=== PATIENT | male | born 1985 | race Caucasian/White ===

== ENCOUNTER 2017-03-16 10:31 | Inpatient (IN) | payer OTHER ==
[2017-03-16 11:30] VITALS: BMI 42.4
[2017-03-16] MEDS ORDERED: chlordiazePOXIDE HCL 25 MG CAPSULE PO PRN (13:15)
[2017-03-16] MEDS ORDERED: MAGNESIUM HYDROX 2400MG/30ML ORAL SUSPENSION 30 ML CUP PO PRN (13:15)
[2017-03-16] MEDS ORDERED: diphenhydrAMINE HCL 50 MG CAPSULE PO PRN (13:15)
[2017-03-16] MEDS ORDERED: MAG HYDROX/AL HYDROX/SIMETH 30 ML UNIT-DOSE CUP PO PRN (13:15)
[2017-03-16] MEDS ORDERED: MENTHOL/PHENOL 1 EACH UD MM PRN (13:15)
[2017-03-16] MEDS ORDERED: P-EPHED 60MG/TRIPROLIDI 2.5MG TABLET PO PRN (13:15)
[2017-03-16] MEDS ORDERED: NICOTINE POLACRILEX 4 MG GUM BUC PRN (13:15)
[2017-03-16] MEDS ORDERED: guaiFENesin/D-METHORPHAN HB 10 ML UNIT-DOSE CUPS PO PRN (13:15)
[2017-03-16] MEDS ORDERED: MAGNESIUM CITRATE 300 ML BOTTLE PO PRN (13:15)
[2017-03-16] MEDS ORDERED: LOPERAMIDE HCL 2 MG CAPSULE PO PRN (13:15)
[2017-03-16] MEDS ORDERED: hydrOXYzine PAMOATE 50 MG CAPSULE (FP) PO PRN (13:15)
--- NOTE | 2017-03-16 13:15 | HP ---
CIWA Score - CIWA Score Nausea/Vomitin Muscle Tremors: 4-Moderate,w/Arms Extend Anxiety: 4-Mod. Anxious/Guarded Agitation: 4-Moderately Restless Paroxysmal Sweats: 3 Orientation: 0-Oriented Tacttile Disturbances: 1-Very Mild Itch/Numbness Auditory Disturbances: 0-None Visual Disturbances: 4-Moderate Hallucinations Headache: 1-Very Mild CIWA-Ar Total Score: 24 Admission ROS BHS - HPI Chief Complaint: requesting inpatient detoxification from alcohol use Allergies/Adverse Reactions: Allergies Allergy/AdvReac Type Severity Reaction Status Date / Time No Known Allergies Allergy Verified 03/16/17 13:12 History of Present Illness: 31 yo m w h/o alcohol and marijuana dependence, has been in detox before, last detox completed at [facility] suicide attempt 2002, ROS +ve anxiety, depression and insomnia, reports alcohol withdrawal sx and seizure in past this summer after smoking K2. Not on any medications at present. Wt steady. Exam Limitations: No Limitations - Ebola screening Have you traveled outside of the country in the last 21 days: No Have you had contact with anyone from an Ebola affected area: No Have you been sick,other than usual withdrawal symptoms: No Do you have a fever: No - Review of Systems Constitutional: Diaphoresis, Weight Stable EENT: reports: No Symptoms Reported Respiratory: reports: No Symptoms reported Cardiac: reports: Syncope (had blackouts , last one 1 week ago) GI: reports: Nausea, Poor Fluid Intake, Vomiting (yestereday while drinking) : reports: No Symptoms Reported Musculoskeletal: reports: No Symptoms Reported Integumentary: reports: [place] Neuro: reports: Headache, Seizure, Tremors Endocrine: reports: No Symptoms Reported Hematology: reports: No Symptoms Reported Psychiatric: reports: Judgement Intact, Mood/Affect Appropiate, Orientated x3, Anxious Other Systems: Reviewed and Negative Patient History - Patient Medical History Hx Anemia: No Hx Asthma: No Hx Chronic Obstructive Pulmonary Disease (COPD): No Hx Cancer: No Hx Cardiac Disorders: No Hx Congestive Heart Failure: No Hx Hypertension: No Hx Hypercholesterolemia: No Hx Pacemaker: No HX Cerebrovascular Accident: No Hx Seizures: No Hx Dementia: No Hx Diabetes: No Hx Gastrointestinal Disorders: No Hx Liver Disease: No Hx Genitourinary Disorders: No Hx Sexually Transmitted Disorders: No Hx Renal Disease (ESRD): No Hx Thyroid Disease: No Hx Human Immunodeficiency Virus (HIV): No Hx Hepatitis C: No Hx Depression: Yes (no med) Hx Suicide Attempt: Yes (2002) Hx Bipolar Disorder: Yes (no med) Hx Schizophrenia: No - Patient Surgical History Past Surgical History: No Hx Neurologic Surgery: No Hx Cataract Extraction: No Hx Cardiac Surgery: No Hx Lung Surgery: No Hx Breast Surgery: No Hx Breast Biopsy: No Hx Abdominal Surgery: No Hx Appendectomy: No Hx Cholecystectomy: No Hx Genitourinary Surgery: No Hx Section: No Hx Orthopedic Surgery: No Hx Hysterectomy: No Anesthesia Reaction: No - PPD History Previous Implant?: Yes Documented Results: Negative w/o proof Implanted On Prior [facility] Admission?: Yes Date: 04/14/13 PPD to be Administered?: Yes - Reproductive History Patient is a Female of Child Bearing Age (11 -55 yrs old): No Patient : No - Smoking Cessation Smoking history: Current every day smoker Have you smoked in the past 12 months: Yes Aproximately how many cigarettes per day: 10 Hx Chewing Tobacco Use: No Initiated information on smoking cessation: Yes 'Breaking Loose' booklet given: 03/16/17 - Substance & Tx. History Hx Alcohol Use: Yes (2 pints vodka) Hx Substance Use: Yes Substance Use Type: Alcohol, Marijuana Hx Substance Use Treatment: Yes ([facility] 01/1027) - Substances Abused Alcohol Route: Oral Frequency: Daily Amount used: vodka(2 pints) Age of first use: 13 Date of Last Use: 03/16/17 Marijuana/Hashish Route: Smoking Frequency: Daily Amount used: $10 Age of first use: 13 Date of Last Use: 03/15/17 Family Disease History - Family Disease History Family Disease History: Diabetes: Grandparent, Other: Brother (schizophrenia) Admission Physical Exam BHS - Vital Signs Vital Signs: Vital Signs - 24 hr 03/16/17 11:28 Temperature 96.3 F L Pulse Rate 88 Respiratory 20 Rate Blood Pressure 140/89 - Physical General Appearance: Yes: Nourished, Appropriately Dressed, Mild Distress, Alcohol on Breath, Obese, Sweating, Anxious HEENTM: Yes: Within Normal Limits, EOMI, Hearing grossly Normal, Normal ENT Inspection, Normocephalic, Normal Voice, TOD, Pharynx Normal Respiratory: Yes: Within Normal Limits, Chest Non-Tender, Lungs Clear, Normal Breath Sounds, No Respiratory Distress, No Accessory Muscle Use Neck: Yes: Within Normal Limits, No masses,lesions,Nodules, Supple, Trachea in good position Breast: Yes: Breast Exam Deferred Cardiology: Yes: Within Normal Limits, Regular Rhythm, Regular Rate, S1, S2 Abdominal: Yes: Within Normal Limits, Normal Bowel Sounds, Non Tender, Soft, Protuberent Genitourinary: Yes: Within Normal Limits Back: Yes: Within Normal Limits, Normal Inspection Musculoskeletal: Yes: Within Normal Limits, full range of Motion, Gait Steady, Pelvis Stable Extremities: Yes: Normal Capillary Refill, Normal Inspection, Normal Range of Motion, Non-Tender, Tremors Neurological: 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: 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 NML intact, Fully Oriented, Alert, Motor Strength 5/5, Normal Response, Depressed Affect Integumentary: Yes: Normal Color, Warm, [place] Lymphatic: Yes: Within Normal Limits - Addiitonal Findings: withdrawwal sx present - Diagnostic (1) Bipolar disorder Current Visit: Yes Status: Chronic (2) Cocaine dependence Current Visit: No Status: Resolved (3) Syncope Current Visit: Yes Status: Active (4) Alcohol dependence with uncomplicated withdrawal Current Visit: Yes Status: Acute (5) Cannabis dependence, uncomplicated Current Visit: Yes Status: Acute (6) Nicotine dependence unspecified, with withdrawal Current Visit: Yes Status: Acute (7) Obesity Current Visit: Yes Status: Acute (8) Seizure Current Visit: Yes Status: Acute Cleared for Admission [facility] - Detox or Rehab [facility] Level of Care: Medically Managed Detox Regimen/Protocol: Librium Claeared for Rehab Admission: (n/a) [facility] Breath Alcohol Content Breath Alcohol Content: 0.094 Urine Drug Screen - Control Is Test Valid: Yes - Results Drug Screen Negative: No Urine Drug Screen Results: THC-Marijuana
[2017-03-16] MEDS ORDERED: chlordiazePOXIDE HCL 25 MG CAPSULE PO ONE (14:29)
[2017-03-16] MEDS: NICOTINE 21 MG/24 HOURS TOPICAL PATCH TD SCH (15:07)
[2017-03-16] MEDS: chlordiazePOXIDE HCL 25 MG CAPSULE PO SCH ×2 (17:25→22:46)
[2017-03-16 22:33] LABS: URINE APPEARANCE CLEAR; URINE BILIRUBIN NEGATIVE (NEGATIVE); URINE BLOOD NEGATIVE (NEGATIVE); URINE COLOR LTYELLOW; URINE GLUCOSE (UA) NEGATIVE (NEGATIVE); URINE KETONE TRACE (NEGATIVE); URINE LEUK ESTERASE NEGATIVE (NEGATIVE); URINE NITRITE NEGATIVE (NEGATIVE); URINE PROTEIN NEGATIVE (NEGATIVE); URINE UROBILINOGEN NEGATIVE E.U./dl (0.2-1.0)
[2017-03-16] MEDS: ACETAMINOPHEN 325 MG TABLET (FP) PO PRN (22:46)
[2017-03-16] MEDS: THIAMINE HCL 100 MG TABLET (FP) PO SCH (22:51)
[2017-03-17] MEDS: chlordiazePOXIDE HCL 25 MG CAPSULE PO SCH ×4 (06:06→22:46)
--- NOTE | 2017-03-17 10:10 | EKG ---
Test Reason : Blood Pressure : / mmHG Vent. Rate : 066 BPM Atrial Rate : 066 BPM P-R Int : 172 ms QRS Dur : 094 ms QT Int : 386 ms P-R-T Axes : 063 071 038 degrees QTc Int : 404 ms NORMAL SINUS RHYTHM NORMAL ECG NO PREVIOUS ECGS AVAILABLE Confirmed by GER DEXTER MD ([id number]) on 03/17/2017 10:10:05 AM Referred By: Confirmed By:GER DEXTER MD
[2017-03-17 10:20] LABS: MCHC 33.7 g/dl (32.0-35.9); MEAN CELL VOLUME 86.2 fl (80-96); MEAN PLT VOLUME 9.7 fl (7.5-11.1); PLATELET COUNT 173 K/MM3 (134-434); RDW 14.2 % (11.9-15.9); WHITE BLOOD COUNT 5.3 K/mm3 (4.0-10.0)
--- NOTE | 2017-03-17 10:25 | CONSULT ---
[facility] Psychiatric Consult - Data Date of interview: 03/17/17 Admission source: [facility] Identifying data: This is 31 years old single male admitted to [address] [place] [address] ,intoxicated with Alcohol,Marijuana. Substance Abuse History: Reports drinking since 13 years old,2 pints of vodka daily,Cannabis since school age. Medical History: H/O Syncope,Seizures,Obesity. Psychiatric History: Patient denies previous psychiatric history and is not willing to take psychiatric medications. Physical/Sexual Abuse/Trauma History: denies Mental Status Exam - Mental Status Exam Alert and Oriented to: Time, Place, Person Cognitive Function: Grossly Intact Patient Appearance: Well Groomed Mood: Euthymic Affect: Mood Congruent Patient Behavior: Cooperative Speech Pattern: Clear Voice Loudness: Normal Thought Process: Goal Oriented Thought Disorder: Not Present Hallucinations: Denies Suicidal Ideation: Denies Homicidal Ideation: Denies Insight/Judgement: Fair Sleep: Fair Appetite: Fair Muscle strength/Tone: Normal Gait/Station: Normal Psychiatric Findings - Problem List ([place] 1, 2,3) (1) Alcohol dependence with uncomplicated withdrawal Status: Chronic (2) Cannabis dependence, uncomplicated Status: Chronic (3) Nicotine dependence unspecified, with withdrawal Status: Chronic (4) Obesity Status: Chronic (5) Seizure Status: Inactive - Initial Treatment Plan Initial Treatment Plan: Will monitor progress.
[2017-03-17] MEDS: NICOTINE 21 MG/24 HOURS TOPICAL PATCH TD SCH (10:34)
[2017-03-17] MEDS: PRENATAL VITAMINS W/ FOLIC ACID TABLET (FP) PO SCH (10:34)
[2017-03-17] MEDS: ACETAMINOPHEN 325 MG TABLET (FP) PO PRN ×2 (10:35→17:46)
[2017-03-17 11:00] LABS: ALBUMIN 3.9 g/dl (3.4-5.0); ALK PHOS 67 U/L (45-117); ANION GAP 10 (8-16); BILIRUBIN,TOTAL 0.2 mg/dL (0.2-1.0); CALCIUM 8.4 mg/dL (8.5-10.1); CO2 24 mmol/L (21-32); COCKROFT - GAULT 177.28; GLUCOSE,RANDOM 110 mg/dL (74-106); SGOT/AST 47 U/L (15-37); SGPT/ALT 44 U/L (12-78); TOT PROT 7.2 g/dl (6.4-8.2)
--- NOTE | 2017-03-17 14:26 | PN ---
[facility] CIWA - CIWA Score Nausea/Vomitin Muscle Tremors: 3 Anxiety: 3 Agitation: 2 Paroxysmal Sweats: 3 Orientation: 0-Oriented Tacttile Disturbances: 1-Very Mild Itch/Numbness Auditory Disturbances: 0-None Visual Disturbances: 1-Very Mild Sensitivity Headache: 2-Mild CIWA-Ar Total Score: 17 S Progress Note (SOAP) Subjective: tremors, sweats, sleep interruption Objective: 03/17/17 14:25 Vital Signs 03/17/17 03/17/17 06:52 09:46 Temperature 96 F L 97.0 F L Pulse Rate 64 70 Respiratory 18 20 Rate Blood Pressure 129/87 126/92 Laboratory Last Values WBC 5.3 K/mm3 (4.0-10.0) 03/17/17 06:16 RBC 4.62 M/mm3 (4.00-5.60) 03/17/17 06:16 Hgb 13.4 GM/dL (11.7-16.9) 03/17/17 06:16 Hct 39.8 % (35.4-49) 03/17/17 06:16 MCV 86.2 fl (80-96) 03/17/17 06:16 MCHC 33.7 g/dl (32.0-35.9) 03/17/17 06:16 RDW 14.2 % (11.9-15.9) 03/17/17 06:16 Plt Count 173 K/MM3 (134-434) 03/17/17 06:16 MPV 9.7 fl (7.5-11.1) 03/17/17 06:16 Sodium 143 mmol/L (136-145) 03/17/17 06:16 Potassium 4.0 mmol/L (3.5-5.1) 03/17/17 06:16 Chloride 109 mmol/L (98-107) H 03/17/17 06:16 Carbon Dioxide 24 mmol/L (21-32) 03/17/17 06:16 Anion Gap 10 (8-16) 03/17/17 06:16 BUN 18 mg/dL (7-18) 03/17/17 06:16 Creatinine 1.0 mg/dL (0.7-1.3) 03/17/17 06:16 Creat Clearance w eGFR > 60 (>60) 03/17/17 06:16 Random Glucose 110 mg/dL (74-106) H 03/17/17 06:16 Calcium 8.4 mg/dL (8.5-10.1) L 03/17/17 06:16 Total Bilirubin 0.2 mg/dL (0.2-1.0) D 03/17/17 06:16 AST 47 U/L (15-37) H D 03/17/17 06:16 ALT 44 U/L (12-78) D 03/17/17 06:16 Alkaline Phosphatase 67 U/L (45-117) D 03/17/17 06:16 Total Protein 7.2 g/dl (6.4-8.2) 03/17/17 06:16 Albumin 3.9 g/dl (3.4-5.0) 03/17/17 06:16 Urine Color Ltyellow 03/16/17 13:00 Urine Appearance Clear 03/16/17 13:00 Urine pH 5.0 (5.0-8.0) D 03/16/17 13:00 Ur Specific [place] 1.020 (1.001-1.035) 03/16/17 13:00 Urine Protein Negative (NEGATIVE) 03/16/17 13:00 Urine Glucose (UA) Negative (NEGATIVE) 03/16/17 13:00 Urine Ketones Trace (NEGATIVE) H 03/16/17 13:00 Urine Blood Negative (NEGATIVE) 03/16/17 13:00 Urine Nitrite Negative (NEGATIVE) 03/16/17 13:00 Urine Bilirubin Negative (NEGATIVE) 03/16/17 13:00 Urine Urobilinogen Negative E.U./dl (0.2-1.0) 03/16/17 13:00 Ur Leukocyte Esterase Negative (NEGATIVE) 03/16/17 13:00 RPR Titer Nonreactive (NONREACTIVE) 03/17/17 06:16 labs noted Assessment: 03/17/17 14:25 withdrawal sx Plan: continue detox
[2017-03-17] MEDS: THIAMINE HCL 100 MG TABLET (FP) PO SCH (22:46)
[2017-03-17] MEDS: IBUPROFEN 400 MG TABLET (FP) PO PRN (22:47)
[2017-03-18] MEDS: chlordiazePOXIDE HCL 25 MG CAPSULE PO SCH ×2 (06:19→11:01)
[2017-03-18] MEDS: IBUPROFEN 400 MG TABLET (FP) PO PRN ×2 (06:21→17:29)
[2017-03-18] MEDS: PRENATAL VITAMINS W/ FOLIC ACID TABLET (FP) PO SCH (11:01)
[2017-03-18] MEDS: NICOTINE 21 MG/24 HOURS TOPICAL PATCH TD SCH (11:01)
[2017-03-18] MEDS: ACETAMINOPHEN 325 MG TABLET (FP) PO PRN (11:03)
[2017-03-18 13:44] LABS: URINE APPEARANCE CLEAR; URINE BILIRUBIN NEGATIVE (NEGATIVE); URINE BLOOD NEGATIVE (NEGATIVE); URINE COLOR STRAW; URINE GLUCOSE (UA) NEGATIVE (NEGATIVE); URINE KETONE NEGATIVE (NEGATIVE); URINE LEUK ESTERASE NEGATIVE (NEGATIVE); URINE NITRITE NEGATIVE (NEGATIVE); URINE PROTEIN NEGATIVE (NEGATIVE); URINE UROBILINOGEN NEGATIVE E.U./dl (0.2-1.0)
--- NOTE | 2017-03-18 16:45 | PN ---
S CIWA - CIWA Score Nausea/Vomitin Muscle Tremors: 4-Moderate,w/Arms Extend Anxiety: 4-Mod. Anxious/Guarded Agitation: 4-Moderately Restless Paroxysmal Sweats: No Perspiration Orientation: 0-Oriented Tacttile Disturbances: 1-Very Mild Itch/Numbness Auditory Disturbances: 0-None Visual Disturbances: 0-None Headache: 1-Very Mild CIWA-Ar Total Score: 17 BHS Progress Note (SOAP) Subjective: Anxious, interrupted sleep, sweating, restless Objective: 03/18/17 16:44 Last Vital Signs Temp Pulse Resp BP Pulse Ox 97.4 F L 67 18 123/79 03/18/17 14:05 03/18/17 14:05 03/18/17 14:05 03/18/17 14:05 Laboratory Tests 03/16/17 03/17/17 03/17/17 13:00 06:16 06:16 WBC 5.3 RBC 4.62 Hgb 13.4 Hct 39.8 MCV 86.2 MCHC 33.7 RDW 14.2 Plt Count 173 MPV 9.7 Sodium 143 Potassium 4.0 Chloride 109 H Carbon Dioxide 24 Anion Gap 10 BUN 18 Creatinine 1.0 Creat Clearance w eGFR > 60 Random Glucose 110 H Calcium 8.4 L Total Bilirubin 0.2 D AST 47 H D ALT 44 D Alkaline Phosphatase 67 D Total Protein 7.2 Albumin 3.9 Urine Color Ltyellow Urine Appearance Clear Urine pH 5.0 D Ur Specific [place] 1.020 Urine Protein Negative Urine Glucose (UA) Negative Urine Ketones Trace H Urine Blood Negative Urine Nitrite Negative Urine Bilirubin Negative Urine Urobilinogen Negative Ur Leukocyte Esterase Negative RPR Titer 03/17/17 03/18/17 06:16 11:00 WBC RBC Hgb Hct MCV MCHC RDW Plt Count MPV Sodium Potassium Chloride Carbon Dioxide Anion Gap BUN Creatinine Creat Clearance w eGFR Random Glucose Calcium Total Bilirubin AST ALT Alkaline Phosphatase Total Protein Albumin Urine Color Straw Urine Appearance Clear Urine pH 7.0 D Ur Specific [place] 1.011 Urine Protein Negative Urine Glucose (UA) Negative Urine Ketones Negative Urine Blood Negative Urine Nitrite Negative Urine Bilirubin Negative Urine Urobilinogen Negative Ur Leukocyte Esterase Negative RPR Titer Nonreactive Labs noted Assessment: 03/18/17 16:44 Withdrawal symptoms Plan: Continue detox
[2017-03-18] MEDS ORDERED: chlordiazePOXIDE 5 MG CAPSULE PO SCH (17:00)
[2017-03-18 22:36] VITALS: BP 138/88; PULSE 62; TEMP 99
--- NOTE | 2017-03-18 23:09 | PN ---
[facility] Progress Note Note: 'S NOTE: INFORMED AT 11:10PM THAT THE PT. WANTS TO SIGN OUT AMA FOR FAMILY EMERGENCY SO, THE PT. SIGNED OUT AMA AND ABOUT TO LEAVE THE FACILITY SOON RECOMMENDED TO F/U WITH PMD AND OUT PT. PROGRAMS. PROVIDER: ANALILIA GOLDBERG MD
[2017-03-19] MEDS ORDERED: chlordiazePOXIDE HCL 10 MG CAPSULE PO SCH (17:00)
--- NOTE | 2017-04-29 19:16 | DS ---
[facility] Detox Discharge Summary Admission Date: 03/16/17 Discharge Date: 03/18/17 - History Present History: Alcohol Dependence, Cannabis Dependence, Cocaine Dependence Pertinent Past History: Obesity - Physical Exam Results Vital Signs: Vital Signs Temperature 99.0 F 03/18/17 22:35 Pulse Rate 62 03/18/17 22:35 Respiratory Rate 19 03/18/17 22:35 Blood Pressure 138/88 03/18/17 22:35 O2 Sat by Pulse Oximetry (%) Pertinent Admission Physical Exam Findings: Withdrawal sx. Laboratory Last Values WBC 5.3 K/mm3 (4.0-10.0) 03/17/17 06:16 RBC 4.62 M/mm3 (4.00-5.60) 03/17/17 06:16 Hgb 13.4 GM/dL (11.7-16.9) 03/17/17 06:16 Hct 39.8 % (35.4-49) 03/17/17 06:16 MCV 86.2 fl (80-96) 03/17/17 06:16 MCHC 33.7 g/dl (32.0-35.9) 03/17/17 06:16 RDW 14.2 % (11.9-15.9) 03/17/17 06:16 Plt Count 173 K/MM3 (134-434) 03/17/17 06:16 MPV 9.7 fl (7.5-11.1) 03/17/17 06:16 Sodium 143 mmol/L (136-145) 03/17/17 06:16 Potassium 4.0 mmol/L (3.5-5.1) 03/17/17 06:16 Chloride 109 mmol/L (98-107) H 03/17/17 06:16 Carbon Dioxide 24 mmol/L (21-32) 03/17/17 06:16 Anion Gap 10 (8-16) 03/17/17 06:16 BUN 18 mg/dL (7-18) 03/17/17 06:16 Creatinine 1.0 mg/dL (0.7-1.3) 03/17/17 06:16 Creat Clearance w eGFR > 60 (>60) 03/17/17 06:16 Random Glucose 110 mg/dL (74-106) H 03/17/17 06:16 Calcium 8.4 mg/dL (8.5-10.1) L 03/17/17 06:16 Total Bilirubin 0.2 mg/dL (0.2-1.0) D 03/17/17 06:16 AST 47 U/L (15-37) H D 03/17/17 06:16 ALT 44 U/L (12-78) D 03/17/17 06:16 Alkaline Phosphatase 67 U/L (45-117) D 03/17/17 06:16 Total Protein 7.2 g/dl (6.4-8.2) 03/17/17 06:16 Albumin 3.9 g/dl (3.4-5.0) 03/17/17 06:16 Urine Color Straw 03/18/17 11:00 Urine Appearance Clear 03/18/17 11:00 Urine pH 7.0 (5.0-8.0) D 03/18/17 11:00 Ur Specific [place] 1.011 (1.001-1.035) 03/18/17 11:00 Urine Protein Negative (NEGATIVE) 03/18/17 11:00 Urine Glucose (UA) Negative (NEGATIVE) 03/18/17 11:00 Urine Ketones Negative (NEGATIVE) 03/18/17 11:00 Urine Blood Negative (NEGATIVE) 03/18/17 11:00 Urine Nitrite Negative (NEGATIVE) 03/18/17 11:00 Urine Bilirubin Negative (NEGATIVE) 03/18/17 11:00 Urine Urobilinogen Negative E.U./dl (0.2-1.0) 03/18/17 11:00 Ur Leukocyte Esterase Negative (NEGATIVE) 03/18/17 11:00 RPR Titer Nonreactive (NONREACTIVE) 03/17/17 06:16 labs noted - Treatment Patient has Accepted a Rehab Referral to: [facility] meetings - Medication Discharge Medications: Ambulatory Orders NK [No Known Home Medication] 03/16/17 - Diagnosis (1) Alcohol dependence with uncomplicated withdrawal Status: Acute (2) Cannabis dependence, uncomplicated Status: Acute (3) Nicotine dependence Status: Acute Qualifiers: Nicotine product type: cigarettes Substance use status: uncomplicated Qualified Code(s): F17.210 - Nicotine dependence, cigarettes, uncomplicated (4) Obesity Status: Chronic Qualifiers: Obesity type: unspecified obesity type - AMA Did Patient Leave Against Medical Advice: Yes
== END 2017-03-18 23:17 | disposition left against medical advice (07) | DRG 770 ==
LOC: YASAS 10:31 → Y3N 14:23
PROVIDERS: ADMIT Internal Medicine; ATTEND Internal Medicine
PROC: HZ2ZZZZ Detoxification Services for Substance Abuse Treatment (ICD-10-PCS; principal; 2017-03-16)
DX: F10.230 Alcohol dependence with withdrawal, uncomplicated (principal); F12.20 Cannabis dependence, uncomplicated; F17.210 Nicotine dependence, cigarettes, uncomplicated; F31.9 Bipolar disorder, unspecified; E66.9 Obesity, unspecified; Z68.41 Body mass index [BMI] 40.0-44.9, adult; Z86.69 Personal history of other diseases of the nervous system and sense organs; Z91.5 Personal history of self-harm
CPT/HCPCS: 36415; 80053; 81003; 85027; 86593; 93005; 93010

== ENCOUNTER 2017-04-25 09:57 | Inpatient (IN) | payer OTHER ==
[2017-04-25 11:25] VITALS: BMI 40.3
--- NOTE | 2017-04-25 13:58 | HP ---
Admission [facility] Chief Complaint: REHAB TX FOR DRUGS AND ALCOHOL DEPENDENCE Allergies/Adverse Reactions: Allergies Allergy/AdvReac Type Severity Reaction Status Date / Time No Known Allergies Allergy Verified 04/25/17 13:08 History of Present Illness: 31 Y/O MALE WITH A HX OF ALCOHOL,K2 AND MARIJUANA DEPENDENCE SEEKING REHAB TX. Exam Limitations: No Limitations - Ebola screening Have you traveled outside of the country in the last 21 days: No Have you had contact with anyone from an Ebola affected area: No Have you been sick,other than usual withdrawal symptoms: No - Review of Systems Constitutional: No Symptoms Reported EENT: reports: Dental Problems (CAVITIES) Respiratory: reports: No Symptoms reported Cardiac: reports: Lightheadedness GI: reports: Nausea : reports: No Symptoms Reported Musculoskeletal: reports: Joint Pain, Muscle Pain Integumentary: reports: Rash (BOTH ANKLES WITH NITCHY RASH X 6 MONTHS) Neuro: reports: Headache, Seizure (X 2 RELATED TO DRUG USE), Dizziness Endocrine: reports: No Symptoms Reported Hematology: reports: No Symptoms Reported Psychiatric: reports: Orientated x3, Anxious Other Systems: Reviewed and Negative Patient History - Patient Medical History Hx Anemia: No Hx Asthma: No Hx Chronic Obstructive Pulmonary Disease (COPD): No Hx Cancer: No Hx Cardiac Disorders: No Hx Congestive Heart Failure: No Hx Hypertension: No Hx Hypercholesterolemia: No Hx Pacemaker: No HX Cerebrovascular Accident: No Hx Seizures: No Hx Dementia: No Hx Diabetes: No Hx Gastrointestinal Disorders: No Hx Liver Disease: No Hx Genitourinary Disorders: No Hx Sexually Transmitted Disorders: No Hx Renal Disease (ESRD): No Hx Thyroid Disease: No Hx Human Immunodeficiency Virus (HIV): No Hx Hepatitis C: No Hx Depression: Yes (no med) Hx Suicide Attempt: Yes (DRINKING CLOROX 2002; DENIES ) Hx Bipolar Disorder: Yes (no med) Hx Schizophrenia: No - Patient Surgical History Past Surgical History: Yes Hx Neurologic Surgery: No Hx Cataract Extraction: No Hx Cardiac Surgery: No Hx Lung Surgery: No Hx Breast Surgery: No Hx Breast Biopsy: No Hx Abdominal Surgery: No Hx Appendectomy: Yes (06/2016) Hx Cholecystectomy: No Hx Genitourinary Surgery: No Hx Orthopedic Surgery: No Anesthesia Reaction: No - PPD History Previous Implant?: Yes Implanted On Prior [facility] Admission?: Yes Date: 03/18/17 PPD to be Administered?: No - Reproductive History Patient is a Female of Child Bearing Age (11 -55 yrs old): No (MALE) - Smoking Cessation Smoking history: Current every day smoker Have you smoked in the past 12 months: Yes Aproximately how many cigarettes per day: 10 Hx Chewing Tobacco Use: No Initiated information on smoking cessation: Yes 'Breaking Loose' booklet given: 04/25/17 - Substance & Tx. History Hx Alcohol Use: Yes (VODKA) Hx Substance Use: Yes (MARIJUANA/K2) Substance Use Type: Alcohol, Marijuana Hx Substance Use Treatment: Yes ([facility]) - Substances Abused Alcohol Route: Oral Frequency: Daily Amount used: 1 1/2 PTS Age of first use: 13 Date of Last Use: 04/25/17 Marijuana/Hashish Route: Smoking Frequency: 3-6 times per week Amount used: 1 SIS Age of first use: 13 Date of Last Use: 04/24/17 K2 Route: Smoking Frequency: 3-6 times per week Age of first use: 28 Date of Last Use: 04/24/17 Family Disease History - Family Disease History Family Disease History: Diabetes: Grandparent, Other: Brother (schizophrenia) Admission Physical Exam S - Vital Signs Vital Signs: Vital Signs - 24 hr 04/25/17 11:24 Temperature 97 F L Pulse Rate 78 Respiratory 18 Rate Blood Pressure 122/84 - Physical General Appearance: Yes: No Apparent Distress, Obese, Anxious HEENTM: Yes: EOMI, Normocephalic, Pharynx Normal Respiratory: Yes: Chest Non-Tender, Lungs Clear, Normal Breath Sounds, No Respiratory Distress Neck: Yes: Supple, Trachea in good position Breast: Yes: Breast Exam Deferred Cardiology: Yes: Regular Rhythm, Regular Rate, S1, S2 Abdominal: Yes: Normal Bowel Sounds, Non Tender Genitourinary: Yes: Other (N/C) Back: Yes: Within Normal Limits Musculoskeletal: Yes: full range of Motion, Gait Steady Extremities: Yes: Normal Range of Motion, Non-Tender 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 intact, Fully Oriented, Alert Integumentary: Yes: Dry, Warm Lymphatic: Yes: Within Normal Limits - Diagnostic (1) Alcohol dependence with uncomplicated withdrawal Current Visit: Yes Status: Chronic (2) Cannabis dependence, uncomplicated Current Visit: Yes Status: Chronic (3) Nicotine dependence unspecified, with withdrawal Current Visit: Yes Status: Acute Qualifiers: Nicotine product type: cigarettes Qualified Code(s): F17.213 - Nicotine dependence, cigarettes, with withdrawal (4) Obesity Current Visit: Yes Status: Chronic Qualifiers: Obesity type: unspecified obesity type Cleared for Admission [facility] - Detox or Rehab Claeared for Rehab Admission: Yes [facility] Breath Alcohol Content Breath Alcohol Content: 0.011 Urine Drug Screen - Results Drug Screen Negative: No Urine Drug Screen Results: THC-Marijuana, BZO-Benzodiazepines
[2017-04-25] MEDS ORDERED: NICOTINE POLACRILEX 2 MG GUM BUC PRN (14:11)
[2017-04-25] MEDS ORDERED: ACETAMINOPHEN 325 MG TABLET (FP) PO PRN (14:11)
[2017-04-25] MEDS ORDERED: P-EPHED 60MG/TRIPROLIDI 2.5MG TABLET PO PRN (14:11)
[2017-04-25] MEDS ORDERED: diphenhydrAMINE HCL 50 MG CAPSULE PO PRN (14:11)
[2017-04-25] MEDS ORDERED: MAGNESIUM HYDROX 2400MG/30ML ORAL SUSPENSION 30 ML CUP PO PRN (14:11)
[2017-04-25] MEDS ORDERED: MENTHOL/PHENOL 1 EACH UD MM PRN (14:11)
[2017-04-25] MEDS ORDERED: guaiFENesin/D-METHORPHAN HB 10 ML UNIT-DOSE CUPS PO PRN (14:11)
[2017-04-25] MEDS ORDERED: IBUPROFEN 400 MG TABLET (FP) PO PRN (14:11)
[2017-04-25] MEDS ORDERED: MAGNESIUM CITRATE 300 ML BOTTLE PO PRN (14:11)
[2017-04-25] MEDS ORDERED: hydrOXYzine PAMOATE 25 MG CAPSULE (FP) PO PRN (14:11)
[2017-04-25] MEDS ORDERED: MAG HYDROX/AL HYDROX/SIMETH 30 ML UNIT-DOSE CUP PO PRN (14:11)
[2017-04-25] MEDS ORDERED: LOPERAMIDE HCL 2 MG CAPSULE PO PRN (14:11)
[2017-04-25] MEDS: NICOTINE 14 MG/24 HOURS TOPICAL PATCH TD SCH (19:41)
[2017-04-25 19:48] LABS: URINE APPEARANCE TURBID; URINE BILIRUBIN NEGATIVE (NEGATIVE); URINE BLOOD NEGATIVE (NEGATIVE); URINE COLOR YELLOW; URINE GLUCOSE (UA) NEGATIVE (NEGATIVE); URINE KETONE TRACE (NEGATIVE); URINE LEUK ESTERASE NEGATIVE (NEGATIVE); URINE NITRITE NEGATIVE (NEGATIVE); URINE PROTEIN NEGATIVE (NEGATIVE); URINE UROBILINOGEN NEGATIVE E.U./dl (0.2-1.0)
[2017-04-25] MEDS: THIAMINE HCL 100 MG TABLET (FP) PO SCH (21:36)
[2017-04-26] MEDS: PRENATAL VITAMINS W/ FOLIC ACID TABLET (FP) PO SCH (09:30)
[2017-04-26] MEDS: NICOTINE 14 MG/24 HOURS TOPICAL PATCH TD SCH (09:30)
[2017-04-26 09:55] LABS: MCH 28.8 pg (25.7-33.7); MEAN CELL VOLUME 87.4 fl (80-96); MEAN PLT VOLUME 10.3 fl (7.5-11.1); PLATELET COUNT 182 K/MM3 (134-434); RDW 14.8 % (11.9-15.9)
[2017-04-26 10:24] LABS: ALBUMIN 4.1 g/dl (3.4-5.0); ALK PHOS 68 U/L (45-117); ANION GAP 14 (8-16); BILIRUBIN,TOTAL 0.3 mg/dL (0.2-1.0); CALCIUM 8.9 mg/dL (8.5-10.1); CO2 23 mmol/L (21-32); COCKROFT - GAULT 187.24; CREATININE 0.9 mg/dL (0.7-1.3); GLUCOSE,RANDOM 85 mg/dL (74-106); SGOT/AST 26 U/L (15-37); SGPT/ALT 32 U/L (12-78); TOT PROT 7.6 g/dl (6.4-8.2)
[2017-04-26 12:14] LABS: HIV 1 & 2 AB NEGATIVE; HIV 1 AGp24 NEGATIVE
--- NOTE | 2017-04-26 16:36 | EKG ---
Test Reason : Blood Pressure : / mmHG Vent. Rate : 058 BPM Atrial Rate : 058 BPM P-R Int : 174 ms QRS Dur : 094 ms QT Int : 428 ms P-R-T Axes : 066 071 034 degrees QTc Int : 420 ms SINUS BRADYCARDIA OTHERWISE NORMAL ECG WHEN COMPARED WITH ECG OF 16-MAR-2017 14:13, NO SIGNIFICANT CHANGE WAS FOUND Confirmed by CAMERON ARNDT MD ([id number]) on 04/26/2017 4:36:12 PM Referred By: Confirmed By:CAMERON ARNDT MD
[2017-04-26] MEDS: HYDROCORTISONE 0.5% TOPICAL CREAM 30 GM TUBE TP SCH (21:43)
[2017-04-26] MEDS: THIAMINE HCL 100 MG TABLET (FP) PO SCH (21:43)
[2017-04-27] MEDS: PRENATAL VITAMINS W/ FOLIC ACID TABLET (FP) PO SCH (09:31)
[2017-04-27] MEDS: HYDROCORTISONE 0.5% TOPICAL CREAM 30 GM TUBE TP SCH ×2 (09:31→21:31)
[2017-04-27] MEDS: NICOTINE 14 MG/24 HOURS TOPICAL PATCH TD SCH (09:32)
[2017-04-27] MEDS: THIAMINE HCL 100 MG TABLET (FP) PO SCH (21:31)
[2017-04-28] MEDS: NICOTINE 14 MG/24 HOURS TOPICAL PATCH TD SCH (09:29)
[2017-04-28] MEDS: PRENATAL VITAMINS W/ FOLIC ACID TABLET (FP) PO SCH (09:29)
[2017-04-28] MEDS: HYDROCORTISONE 0.5% TOPICAL CREAM 30 GM TUBE TP SCH ×2 (09:30→21:23)
--- NOTE | 2017-04-28 14:05 | HP ---
Psychiatrist Admission - Data Date of interview: 04/28/17 Admission source: [facility] Identifying data: First admission to [address] for this 31 y/o male seeking rehabilitation treatment for alcohol and cannabis dependence.Patient is single without children,homeless,unemployed and reportedly deprived of any source of income. Medical History: Patient endorses good general health. Psychiatric History: Patient denies. Physical/Sexual Abuse/Trauma History: Patient denies. Additional Comment: Urine Drug Screen Results: THC-Marijuana, BZO- Benzodiazepines.Noted. - Smoking Cessation. Smoking history: Current every day smoker. Have you smoked in the past 12 months: Yes. Aproximately how many cigarettes per day: 10. Hx Chewing Tobacco Use: No. Initiated information on smoking cessation: Yes. 'Breaking Loose' booklet given: 04/25/17. - Substance & Tx. History. Hx Alcohol Use: Yes (VODKA). Hx Substance Use: Yes (MARIJUANA/ K2). Substance Use Type: Alcohol, Marijuana. Hx Substance Use Treatment: Yes ( [facility]). - Substances Abused. Alcohol. Route: Oral. Frequency: Daily. Amount used: 1 1/2 PTS. Age of first use: 13. Date of Last Use: . Marijuana/Hashish. Route: Smoking. Frequency: 3-6 times per week. Amount used: 1 SIS. Age of first use: 13. Date of Last Use: 04/24/17. K2. Route: Smoking. Frequency: 3-6 times per week. Age of first use: 28. Date of Last Use: 04/24/17. Confirmed by patient in this interview. Vital Signs: Vital Signs - 24 hr 04/28/17 04/28/17 04/28/17 00:30 03:30 06:47 Temperature 97.6 F Pulse Rate 58 L Respiratory 16 16 16 Rate Blood Pressure 128/85 Allergies/Adverse Reactions: Allergies Allergy/AdvReac Type Severity Reaction Status Date / Time No Known Allergies Allergy Verified 04/25/17 13:08 - Substance Abuse/Tx History Hx Alcohol Use: Yes Hx Substance Use: Yes Substance Use Type: Alcohol, Marijuana Hx Substance Use Treatment: Yes - Admission Criteria Previous failed treatment: Yes Poor recovery environment: Yes Comorbidities: Yes Lacks judgement: Yes Mental Status Exam - Mental Status Exam Alert and Oriented to: Time, Place, Person Cognitive Function: Good Patient Appearance: Well Groomed (obese,short stature) Mood: Hopeful, Euthymic Affect: Appropriate, Normal Range Patient Behavior: Appropriate, Cooperative Speech Pattern: Clear Voice Loudness: Normal Thought Process: Intact, Goal Oriented Thought Disorder: Not Present Hallucinations: Denies Suicidal Ideation: Denies Homicidal Ideation: Denies Insight/Judgement: Fair Sleep: Well Appetite: Good Muscle strength/Tone: Normal Gait/Station: Normal Psychiatric Findings - Problem List ([place] 1, 2,3) (1) Cannabis dependence, uncomplicated Current Visit: Yes Status: Chronic (2) Alcohol dependence Current Visit: Yes Status: Chronic (3) Nicotine dependence Current Visit: Yes Status: Chronic (4) Obesity Current Visit: Yes Status: Chronic Qualifiers: Obesity type: unspecified obesity type - Initial Treatment Plan Initial Treatment Plan: Psychoeducation.Support.Observation.
[2017-04-28] MEDS: THIAMINE HCL 100 MG TABLET (FP) PO SCH (21:23)
[2017-04-29] MEDS: NICOTINE 14 MG/24 HOURS TOPICAL PATCH TD SCH (09:31)
[2017-04-29] MEDS: PRENATAL VITAMINS W/ FOLIC ACID TABLET (FP) PO SCH (09:31)
[2017-04-29] MEDS: HYDROCORTISONE 0.5% TOPICAL CREAM 30 GM TUBE TP SCH ×2 (09:31→21:22)
[2017-04-29] MEDS: THIAMINE HCL 100 MG TABLET (FP) PO SCH (21:23)
[2017-04-30] MEDS ORDERED: PT OWN MED DRAWER 7, Y5N ONE (08:32)
[2017-04-30] MEDS: HYDROCORTISONE 0.5% TOPICAL CREAM 30 GM TUBE TP SCH ×2 (10:19→21:42)
[2017-04-30] MEDS: NICOTINE 14 MG/24 HOURS TOPICAL PATCH TD SCH (10:19)
[2017-04-30] MEDS: PRENATAL VITAMINS W/ FOLIC ACID TABLET (FP) PO SCH (10:20)
[2017-04-30] MEDS: THIAMINE HCL 100 MG TABLET (FP) PO SCH (21:42)
[2017-05-01] MEDS: PRENATAL VITAMINS W/ FOLIC ACID TABLET (FP) PO SCH (09:49)
[2017-05-01] MEDS: NICOTINE 14 MG/24 HOURS TOPICAL PATCH TD SCH (09:50)
[2017-05-01] MEDS: HYDROCORTISONE 0.5% TOPICAL CREAM 30 GM TUBE TP SCH ×2 (09:50→21:17)
[2017-05-01] MEDS: THIAMINE HCL 100 MG TABLET (FP) PO SCH (21:17)
[2017-05-02] MEDS: PRENATAL VITAMINS W/ FOLIC ACID TABLET (FP) PO SCH (09:55)
[2017-05-02] MEDS: HYDROCORTISONE 0.5% TOPICAL CREAM 30 GM TUBE TP SCH ×2 (09:55→21:43)
[2017-05-02] MEDS: NICOTINE 14 MG/24 HOURS TOPICAL PATCH TD SCH (09:55)
[2017-05-02] MEDS: THIAMINE HCL 100 MG TABLET (FP) PO SCH (21:43)
[2017-05-03] MEDS: PRENATAL VITAMINS W/ FOLIC ACID TABLET (FP) PO SCH (09:59)
[2017-05-03] MEDS: HYDROCORTISONE 0.5% TOPICAL CREAM 30 GM TUBE TP SCH ×2 (09:59→21:57)
[2017-05-03] MEDS: NICOTINE 14 MG/24 HOURS TOPICAL PATCH TD SCH (10:00)
[2017-05-03] MEDS: THIAMINE HCL 100 MG TABLET (FP) PO SCH (21:57)
[2017-05-04] MEDS: HYDROCORTISONE 0.5% TOPICAL CREAM 30 GM TUBE TP SCH ×2 (10:22→21:28)
[2017-05-04] MEDS: NICOTINE 14 MG/24 HOURS TOPICAL PATCH TD SCH (10:22)
[2017-05-04] MEDS: PRENATAL VITAMINS W/ FOLIC ACID TABLET (FP) PO SCH (10:22)
[2017-05-04] MEDS: THIAMINE HCL 100 MG TABLET (FP) PO SCH (21:25)
[2017-05-05 06:57] VITALS: BP 108/87; PULSE 75; TEMP 98.4
[2017-05-05] MEDS: HYDROCORTISONE 0.5% TOPICAL CREAM 30 GM TUBE TP SCH (09:53)
[2017-05-05] MEDS: NICOTINE 14 MG/24 HOURS TOPICAL PATCH TD SCH (09:53)
[2017-05-05] MEDS: PRENATAL VITAMINS W/ FOLIC ACID TABLET (FP) PO SCH (09:53)
--- NOTE | 2017-05-05 18:40 | PN ---
[facility] Progress Note Note: as per nurse patient requested earlier discharge, discharge order placed, patient was stable upon discharge.
== END 2017-05-05 13:10 | disposition home or self-care (01) | DRG 772 ==
LOC: YASAS 09:57 → Y3W 15:18
PROVIDERS: ADMIT Psychiatry & Neurology Psychiatry; ATTEND Psychiatry & Neurology Psychiatry
PROC: HZ42ZZZ Group Counseling for Substance Abuse Treatment, Cognitive-Behavioral (ICD-10-PCS; principal; 2017-04-25)
DX: F10.20 Alcohol dependence, uncomplicated (principal); F12.20 Cannabis dependence, uncomplicated; F17.213 Nicotine dependence, cigarettes, with withdrawal; E66.9 Obesity, unspecified; Z68.41 Body mass index [BMI] 40.0-44.9, adult; Z91.5 Personal history of self-harm
CPT/HCPCS: 36415; 80053; 81003; 85027; 86593; 87389; 93005; 93010

== ENCOUNTER 2017-10-18 08:45 | Inpatient (IN) | payer OTHER ==
[2017-10-18 09:15] VITALS: BMI 38.7
--- NOTE | 2017-10-18 11:24 | HP ---
CIWA Score - CIWA Score Nausea/Vomitin Muscle Tremors: 3 Anxiety: 3 Agitation: 3 Paroxysmal Sweats: 2 Orientation: 0-Oriented Tacttile Disturbances: 2-Mild Itch/Numbness/Burn Auditory Disturbances: 2-Mild Harshness/Frighten Visual Disturbances: 2-Mild Sensitivity Headache: 2-Mild CIWA-Ar Total Score: 22 Admission ROS BHS - HPI Chief Complaint: I NEED HELP TO STOP DRINKING ALCOHOL,COCAINE,MARIJUANA,K2 Allergies/Adverse Reactions: Allergies Allergy/AdvReac Type Severity Reaction Status Date / Time No Known Allergies Allergy Verified 10/18/17 10:20 History of Present Illness: THIS 32 YEARS OLD MALE WITH ALCOHOL,COCAINE,MARIJUANA,K2,DEPENDENCE,SEEKING DETOX,LAST TREATMENT IN [facility] IN 08/12 SEIZURE 2 YEARS AGO SYNCOPE NICOTINE DEPENDENCE SCHIZOPHRENIA,BIPOLAR DISORDER LONGEST PERIOD OF SOBRIETY 3 YEARS - Ebola screening Have you traveled outside of the country in the last 21 days: No Have you had contact with anyone from an Ebola affected area: No Have you been sick,other than usual withdrawal symptoms: No Do you have a fever: No - Review of Systems Constitutional: Loss of Appetite, Malaise, Night Sweats, Weakness EENT: reports: Nose Congestion Respiratory: reports: No Symptoms reported Cardiac: reports: No Symptoms Reported GI: reports: Diarrhea, Nausea, Vomiting, Abdominal cramping : reports: No Symptoms Reported Musculoskeletal: reports: Back Pain, Muscle Pain Integumentary: reports: Dryness Neuro: reports: Headache, Tremors Endocrine: reports: No Symptoms Reported Hematology: reports: No Symptoms Reported Psychiatric: reports: Anxious (BIPOLAR DISORDER), Depressed Patient History - Patient Medical History Hx Anemia: No Hx Asthma: No Hx Chronic Obstructive Pulmonary Disease (COPD): No Hx Cancer: No Hx Cardiac Disorders: No Hx Congestive Heart Failure: No Hx Hypertension: No Hx Hypercholesterolemia: No Hx Pacemaker: No HX Cerebrovascular Accident: No Hx Seizures: Yes (LAST 2014) Hx Dementia: No Hx Diabetes: No Hx Gastrointestinal Disorders: No Hx Liver Disease: No Hx Genitourinary Disorders: No Hx Sexually Transmitted Disorders: No Hx Renal Disease (ESRD): No Hx Thyroid Disease: No Hx Human Immunodeficiency Virus (HIV): No Hx Hepatitis C: No Hx Depression: Yes Hx Suicide Attempt: Yes (DRINK CHLROX SINCE AGE 17 YEARS) Hx Bipolar Disorder: Yes (no med) Hx Schizophrenia: Yes Other Medical History: NO SUICIDAL,NO HOMICIDAL - Patient Surgical History Past Surgical History: Yes Hx Neurologic Surgery: No Hx Cataract Extraction: No Hx Cardiac Surgery: No Hx Lung Surgery: No Hx Breast Surgery: No Hx Breast Biopsy: No Hx Abdominal Surgery: No Hx Appendectomy: Yes (06/2016 LAP) Hx Cholecystectomy: No Hx Genitourinary Surgery: No Hx Section: No Hx Orthopedic Surgery: No Hx Hysterectomy: No Anesthesia Reaction: No - PPD History Previous Implant?: Yes Documented Results: Negative w/proof Implanted On Prior [facility] Admission?: Yes Date: 03/18/17 Results: 0 MM PPD to be Administered?: No - Smoking Cessation Smoking history: Current every day smoker Have you smoked in the past 12 months: Yes Aproximately how many cigarettes per day: 2 Hx Chewing Tobacco Use: No Initiated information on smoking cessation: Yes 'Breaking Loose' booklet given: 10/18/17 - Substance & Tx. History Hx Alcohol Use: Yes Hx Substance Use: Yes Substance Use Type: Alcohol, Cocaine, Marijuana Hx Substance Use Treatment: Yes ([facility] - Substances Abused Alcohol Route: Oral Frequency: Daily Amount used: VODKA(2 PINTS)/BEER(4-22OZ CANS) Age of first use: 13 Date of Last Use: 10/17/17 Marijuana/Hashish Route: Smoking Frequency: 3-6 times per week Amount used: $10 Age of first use: 13 Date of Last Use: 10/17/17 K2 Route: Smoking Frequency: 3-6 times per week Amount used: $3 Age of first use: 28 Date of Last Use: 10/16/17 Cocaine Route: Smoking Frequency: Daily Amount used: 10$ Age of first use: 15 Date of Last Use: 10/04/17 Family Disease History - Family Disease History Family Disease History: Diabetes: Grandparent, Other: Brother (schizophrenia) Admission Physical Exam BHS - Vital Signs Vital Signs: Vital Signs - 24 hr 10/18/17 09:11 Temperature 98.7 F Pulse Rate 61 Respiratory 18 Rate Blood Pressure 134/93 - Physical General Appearance: Yes: Moderate Distress, Tremorous, Irritable, Sweating, Anxious HEENTM: Yes: Within Normal Limits, Normal ENT Inspection, Normocephalic, TOD Respiratory: Yes: Within Normal Limits, Lungs Clear, Normal Breath Sounds Neck: Yes: Within Normal Limits, Supple, Trachea in good position Breast: Yes: Within Normal Limits Cardiology: Yes: Within Normal Limits, Regular Rhythm, Regular Rate, S1, S2 Abdominal: Yes: Within Normal Limits, Normal Bowel Sounds, Non Tender, Soft Genitourinary: Yes: Within Normal Limits Back: Yes: Within Normal Limits, Normal Inspection Musculoskeletal: Yes: Within Normal Limits, full range of Motion, Back pain Extremities: Yes: Within Normal Limits, Normal Range of Motion, Tremors Neurological: Yes: Within Normal Limits, wood last maker II-XII NML intact, Alert, Motor Strength 5/5 Integumentary: Yes: Dry Lymphatic: Yes: Within Normal Limits - Diagnostic (1) Alcohol dependence with uncomplicated withdrawal Current Visit: No Status: Acute (2) Syncope Current Visit: No Status: Active (3) Cannabis dependence, uncomplicated Current Visit: No Status: Acute (4) Nicotine dependence Current Visit: No Status: Acute Qualifiers: Nicotine product type: cigarettes Substance use status: uncomplicated Qualified Code(s): F17.210 - Nicotine dependence, cigarettes, uncomplicated (5) Bipolar disorder Current Visit: No Status: Chronic (6) Obesity Current Visit: No Status: Chronic Qualifiers: Obesity type: unspecified obesity type (7) Cocaine dependence Current Visit: Yes Status: Acute Cleared for Admission S - [facility] Level of Care: Medically Managed Detox Regimen/Protocol: Librium S Breath Alcohol Content Breath Alcohol Content: 0 Urine Drug Screen - Results Drug Screen Negative: Yes Urine Drug Screen Results: THC-Marijuana, BZO-Benzodiazepines
[2017-10-18] MEDS ORDERED: MAGNESIUM CITRATE 300 ML BOTTLE PO PRN (11:36)
[2017-10-18] MEDS ORDERED: LOPERAMIDE HCL 2 MG CAPSULE PO PRN (11:36)
[2017-10-18] MEDS ORDERED: chlordiazePOXIDE HCL 25 MG CAPSULE PO ONE ×2 (11:36→14:15)
[2017-10-18] MEDS ORDERED: hydrOXYzine PAMOATE 50 MG CAPSULE (FP) PO PRN (11:36)
[2017-10-18] MEDS ORDERED: MAGNESIUM HYDROX 2400MG/30ML ORAL SUSPENSION 30 ML CUP PO PRN (11:36)
[2017-10-18] MEDS ORDERED: chlordiazePOXIDE HCL 25 MG CAPSULE PO PRN (11:36)
[2017-10-18] MEDS ORDERED: P-EPHED 60MG/TRIPROLIDI 2.5MG TABLET PO PRN (11:36)
[2017-10-18] MEDS ORDERED: MENTHOL/PHENOL 1 EACH UD MM PRN (11:36)
[2017-10-18] MEDS ORDERED: MAG HYDROX/AL HYDROX/SIMETH 30 ML UNIT-DOSE CUP PO PRN (11:36)
[2017-10-18] MEDS ORDERED: guaiFENesin/D-METHORPHAN HB 10 ML UNIT-DOSE CUPS PO PRN (11:36)
[2017-10-18] MEDS ORDERED: ACETAMINOPHEN 325 MG TABLET (FP) PO PRN (11:36)
[2017-10-18 17:13] LABS: URINE APPEARANCE CLEAR; URINE BILIRUBIN NEGATIVE (NEGATIVE); URINE BLOOD NEGATIVE (NEGATIVE); URINE COLOR LTYELLOW; URINE GLUCOSE (UA) NEGATIVE (NEGATIVE); URINE KETONE NEGATIVE (NEGATIVE); URINE NITRITE NEGATIVE (NEGATIVE); URINE PROTEIN NEGATIVE (NEGATIVE); URINE UROBILINOGEN NEGATIVE mg/dL (0.2-1.0)
[2017-10-18] MEDS: chlordiazePOXIDE HCL 25 MG CAPSULE PO SCH ×2 (17:46→22:32)
[2017-10-18 21:56] LABS: URINE LEUK ESTERASE Negative (NEGATIVE)
[2017-10-18] MEDS: THIAMINE HCL 100 MG TABLET (FP) PO SCH (22:32)
[2017-10-19] MEDS: chlordiazePOXIDE HCL 25 MG CAPSULE PO SCH ×4 (05:45→22:10)
--- NOTE | 2017-10-19 09:30 | EKG ---
Test Reason : Blood Pressure : / mmHG Vent. Rate : 058 BPM Atrial Rate : 058 BPM P-R Int : 184 ms QRS Dur : 092 ms QT Int : 426 ms P-R-T Axes : 058 059 026 degrees QTc Int : 418 ms SINUS BRADYCARDIA WHEN COMPARED WITH ECG OF 25-APR-2017 20:30, NO SIGNIFICANT CHANGE WAS FOUND Confirmed by GER DEXTER MD ([id number]) on 10/19/2017 9:30:33 AM Referred By: Confirmed By:GER DEXTER MD
[2017-10-19 10:20] LABS: MEAN CELL VOLUME 87.2 fl (80-96); MEAN PLT VOLUME 9.9 fl (7.5-11.1); WHITE BLOOD COUNT 8.1 K/mm3 (4.0-10.0)
[2017-10-19 10:22] LABS: MCH 28.8 pg (25.7-33.7); PLATELET COUNT 183 K/MM3 (134-434); RDW 14.7 % (11.9-15.9)
[2017-10-19 10:29] LABS: ALBUMIN 3.1 g/dl (3.4-5.0); ANION GAP 6 (8-16); BILIRUBIN,TOTAL 0.3 mg/dL (0.2-1.0); CO2 26 mmol/L (21-32); CREATININE 0.9 mg/dL (0.7-1.3); GLUCOSE,RANDOM 90 mg/dL (74-106); SGOT/AST 22 U/L (15-37); SGPT/ALT 43 U/L (12-78); TOT PROT 6.2 g/dl (6.4-8.2)
[2017-10-19 10:30] LABS: ALK PHOS 68 U/L (45-117)
[2017-10-19] MEDS: PRENATAL VITAMINS W/ FOLIC ACID TABLET (FP) PO SCH (10:36)
--- NOTE | 2017-10-19 10:36 | CONSULT ---
[facility] Psychiatric Consult - Data Date of interview: 10/19/17 Admission source: [facility] Identifying data: Readmission to [facility] for this 32 y/o [place] male seeking detox treatment for alcohol,cocaine and cannabis dependence.Patient is single without children,homeless,unemployed and supported on food stamps. Substance Abuse History: Discussed in this session.Mr Mcconnell reports active use of cocaine,alcohol and marihuana (k2).See [facility] report for details : Smoking history: Current every day smoker. Have you smoked in the past 12 months: Yes. Aproximately how many cigarettes per day: 2. Hx Chewing Tobacco Use: No. Initiated information on smoking cessation: Yes. 'Breaking Loose' booklet given : 10/18/17. - Substance & Tx. History. Hx Alcohol Use: Yes. Hx Substance Use : Yes. Substance Use Type: Alcohol, Cocaine, Marijuana. Hx Substance Use Treatment: Yes ([facility]). - Substances Abused. Alcohol. Route: Oral. Frequency: Daily. Amount used: VODKA(2 PINTS)/BEER(4-22OZ CANS). Age of first use: 13. Date of Last Use: 10/17/17. Marijuana/Hashish. Route: Smoking. Frequency: 3-6 times per week. Amount used: $10. Age of first use: 13. Date of Last Use: 10/17/17. K2. Route: Smoking. Frequency: 3-6 times per week. Amount used: $3. Age of first use: 28. Date of Last Use: 10/16/17. Cocaine. Route: Smoking. Frequency: Daily. Amount used: 10$. Age of first use: 15. Date of Last Use: 10/04/17 Medical History: History of apppendectomy and seizures (withdrawal-related). Psychiatric History: No reported history of psychiatric hospitalizations.Only CPEP evaluations at local institutions.Mr Mcconnell indicates that he used to be prescribed sertraline,olanzapine,trazodone and risperdal by various providers in a distant past.Off medications for more than 10 years (self-report).No OPD care.Patient is already known to detox units/[facility] at [facility] but he does not follow up with aftercare upon discharge (see records of 03/17/17 + 04/28/17) .Mr Mcconnell reports one suicide attempt via ingestion of chlorox (2002).Denies having a mental illness and expresses no interest in psychotropic medications with the exception of the current detoxification treatment. Physical/Sexual Abuse/Trauma History: Patient denies history of abuse. Additional Comment: Urine Drug Screen Results: THC-Marijuana, BZO- Benzodiazepines.Noted. Mental Status Exam - Mental Status Exam Alert and Oriented to: Time, Place, Person Cognitive Function: Good Patient Appearance: Well Groomed (obese) Mood: Hopeful, Euthymic Affect: Appropriate, Normal Range Patient Behavior: Appropriate, Cooperative Speech Pattern: Clear Voice Loudness: Normal Thought Process: Goal Oriented Thought Disorder: Not Present Hallucinations: Denies Suicidal Ideation: Denies Homicidal Ideation: Denies Insight/Judgement: Poor Sleep: Well Appetite: Good Muscle strength/Tone: Normal Gait/Station: Normal Psychiatric Findings - Problem List ([place] 1, 2,3) (1) Alcohol dependence with uncomplicated withdrawal Current Visit: Yes Status: Acute (2) Cocaine dependence Current Visit: Yes Status: Acute (3) Cannabis dependence, uncomplicated Current Visit: Yes Status: Acute (4) Nicotine dependence Current Visit: Yes Status: Acute Qualifiers: Nicotine product type: cigarettes Substance use status: uncomplicated Qualified Code(s): F17.210 - Nicotine dependence, cigarettes, uncomplicated (5) Substance induced mood disorder Current Visit: Yes Status: Suspected - Initial Treatment Plan Initial Treatment Plan: Psychoeducation.Detoxification.Observation.
[2017-10-19] MEDS: NICOTINE 21 MG/24 HOURS TOPICAL PATCH TD SCH (10:37)
[2017-10-19 12:08] LABS: HIV 1 & 2 AB NEGATIVE; HIV 1 AGp24 NEGATIVE
--- NOTE | 2017-10-19 12:23 | PN ---
[facility] CIWA - CIWA Score Nausea/Vomitin-No Nausea/No Vomiting Muscle Tremors: 3 Anxiety: 4-Mod. Anxious/Guarded Agitation: 4-Moderately Restless Paroxysmal Sweats: 3 Orientation: 0-Oriented Tacttile Disturbances: 2-Mild Itch/Numbness/Burn Auditory Disturbances: 0-None Visual Disturbances: 2-Mild Sensitivity Headache: 0-None Present CIWA-Ar Total Score: 18 BHS Progress Note (SOAP) Subjective: Sweating, Anxious, Tremors. Objective: PT. A & O X 3, OBSERVED AMBULATING ON UNIT. NO ACUTE DISTRESS. 10/19/17 12:21 Vital Signs Temperature 96.6 F L 10/19/17 10:00 Pulse Rate 97 H 10/19/17 10:00 Respiratory Rate 20 10/19/17 10:00 Blood Pressure 126/85 10/19/17 10:00 O2 Sat by Pulse Oximetry (%) Laboratory Tests 10/18/17 10/19/17 10/19/17 12:00 07:30 07:30 WBC 8.1 RBC 4.57 Hgb 13.2 Hct 39.9 MCV 87.2 MCH 28.8 MCHC 33.0 RDW 14.7 Plt Count 183 MPV 9.9 Sodium Potassium Chloride Carbon Dioxide Anion Gap BUN Creatinine Creat Clearance w eGFR Random Glucose Calcium Total Bilirubin AST ALT Alkaline Phosphatase Total Protein Albumin Urine Color Ltyellow Urine Appearance Clear Urine pH 5.0 Ur Specific [place] 1.018 Urine Protein Negative Urine Glucose (UA) Negative Urine Ketones Negative Urine Blood Negative Urine Nitrite Negative Urine Bilirubin Negative Urine Urobilinogen Negative Ur Leukocyte Esterase Negative RPR Titer HIV 1&2 Antibody Screen Negative HIV P24 Antigen Negative 10/19/17 10/19/17 07:30 07:30 WBC RBC Hgb Hct MCV MCH MCHC RDW Plt Count MPV Sodium 140 Potassium 4.0 Chloride 108 H Carbon Dioxide 26 Anion Gap 6 L BUN 13 D Creatinine 0.9 Creat Clearance w eGFR > 60 Random Glucose 90 Calcium 8.0 L Total Bilirubin 0.3 AST 22 ALT 43 D Alkaline Phosphatase 68 Total Protein 6.2 L Albumin 3.1 L D Urine Color Urine Appearance Urine pH Ur Specific [place] Urine Protein Urine Glucose (UA) Urine Ketones Urine Blood Urine Nitrite Urine Bilirubin Urine Urobilinogen Ur Leukocyte Esterase RPR Titer Nonreactive HIV 1&2 Antibody Screen HIV P24 Antigen LABS NOTED. HCV AB RESULT PENDING. 11/24/17 12:22 Assessment: 10/19/17 12:21 WITHDRAWAL SYMPTOMS. Plan: CONTINUE DETOX.
[2017-10-19] MEDS: THIAMINE HCL 100 MG TABLET (FP) PO SCH (22:10)
[2017-10-20] MEDS: chlordiazePOXIDE HCL 25 MG CAPSULE PO SCH ×2 (06:06→10:29)
[2017-10-20] MEDS: NICOTINE 21 MG/24 HOURS TOPICAL PATCH TD SCH (10:29)
[2017-10-20] MEDS: PRENATAL VITAMINS W/ FOLIC ACID TABLET (FP) PO SCH (10:29)
--- NOTE | 2017-10-20 13:11 | PN ---
[facility] CIWA - CIWA Score Nausea/Vomitin-No Nausea/No Vomiting Muscle Tremors: 3 Anxiety: 4-Mod. Anxious/Guarded Agitation: 2 Paroxysmal Sweats: 3 Orientation: 0-Oriented Tacttile Disturbances: 3-Moderate Itch/Numb/Burn Auditory Disturbances: 0-None Visual Disturbances: 1-Very Mild Sensitivity Headache: 0-None Present CIWA-Ar Total Score: 16 S Progress Note (SOAP) Subjective: Anxious, Tremors, Sweating. Objective: PT. A & O X 3, OBSERVED AMBULATING ON UNIT. NO ACUTE DISTRESS. 10/20/17 13:07 Vital Signs Temperature 98.6 F 10/20/17 10:00 Pulse Rate 47 L 10/20/17 10:00 Respiratory Rate 20 10/20/17 10:00 Blood Pressure 108/75 10/20/17 10:00 O2 Sat by Pulse Oximetry (%) Laboratory Tests 10/18/17 10/19/17 10/19/17 12:00 07:30 07:30 WBC 8.1 RBC 4.57 Hgb 13.2 Hct 39.9 MCV 87.2 MCH 28.8 MCHC 33.0 RDW 14.7 Plt Count 183 MPV 9.9 Sodium Potassium Chloride Carbon Dioxide Anion Gap BUN Creatinine Creat Clearance w eGFR Random Glucose Calcium Total Bilirubin AST ALT Alkaline Phosphatase Total Protein Albumin Urine Color Ltyellow Urine Appearance Clear Urine pH 5.0 Ur Specific [place] 1.018 Urine Protein Negative Urine Glucose (UA) Negative Urine Ketones Negative Urine Blood Negative Urine Nitrite Negative Urine Bilirubin Negative Urine Urobilinogen Negative Ur Leukocyte Esterase Negative RPR Titer HIV 1&2 Antibody Screen Negative HIV P24 Antigen Negative 10/19/17 10/19/17 07:30 07:30 WBC RBC Hgb Hct MCV MCH MCHC RDW Plt Count MPV Sodium 140 Potassium 4.0 Chloride 108 H Carbon Dioxide 26 Anion Gap 6 L BUN 13 D Creatinine 0.9 Creat Clearance w eGFR > 60 Random Glucose 90 Calcium 8.0 L Total Bilirubin 0.3 AST 22 ALT 43 D Alkaline Phosphatase 68 Total Protein 6.2 L Albumin 3.1 L D Urine Color Urine Appearance Urine pH Ur Specific [place] Urine Protein Urine Glucose (UA) Urine Ketones Urine Blood Urine Nitrite Urine Bilirubin Urine Urobilinogen Ur Leukocyte Esterase RPR Titer Nonreactive HIV 1&2 Antibody Screen HIV P24 Antigen LABS NOTED. RESULT OF HCV AB PENDING. 10/20/17 13:10 Assessment: 10/20/17 13:08 WITHDRAWAL SYMPTOMS. Plan: CONTINUE DETOX. INCREASE DAILY PO FLUID INTAKE.
[2017-10-20] MEDS: chlordiazePOXIDE 5 MG CAPSULE PO SCH ×2 (16:58→22:30)
[2017-10-20] MEDS: THIAMINE HCL 100 MG TABLET (FP) PO SCH (22:30)
[2017-10-21] MEDS: chlordiazePOXIDE 5 MG CAPSULE PO SCH ×2 (05:46→10:32)
[2017-10-21] MEDS: IBUPROFEN 400 MG TABLET (FP) PO PRN (05:48)
[2017-10-21] MEDS: PRENATAL VITAMINS W/ FOLIC ACID TABLET (FP) PO SCH (10:33)
[2017-10-21] MEDS: NICOTINE 21 MG/24 HOURS TOPICAL PATCH TD SCH (10:33)
--- NOTE | 2017-10-21 13:37 | PN ---
BHS Progress Note (SOAP) Subjective: Sweating, anxious, interrupted sleep Objective: 10/21/17 13:36 Last Vital Signs Temp Pulse Resp BP Pulse Ox 96.4 F L 64 18 109/64 10/21/17 10:00 10/21/17 10:00 10/21/17 10:00 10/21/17 10:00 Laboratory Tests 10/18/17 10/19/17 10/19/17 12:00 07:30 07:30 WBC 8.1 RBC 4.57 Hgb 13.2 Hct 39.9 MCV 87.2 MCH 28.8 MCHC 33.0 RDW 14.7 Plt Count 183 MPV 9.9 Sodium Potassium Chloride Carbon Dioxide Anion Gap BUN Creatinine Creat Clearance w eGFR Random Glucose Calcium Total Bilirubin AST ALT Alkaline Phosphatase Total Protein Albumin Urine Color Ltyellow Urine Appearance Clear Urine pH 5.0 Ur Specific [place] 1.018 Urine Protein Negative Urine Glucose (UA) Negative Urine Ketones Negative Urine Blood Negative Urine Nitrite Negative Urine Bilirubin Negative Urine Urobilinogen Negative Ur Leukocyte Esterase Negative RPR Titer Hepatitis C Antibody HIV 1&2 Antibody Screen Negative HIV P24 Antigen Negative 10/19/17 10/19/17 10/19/17 07:30 07:30 07:30 WBC RBC Hgb Hct MCV MCH MCHC RDW Plt Count MPV Sodium 140 Potassium 4.0 Chloride 108 H Carbon Dioxide 26 Anion Gap 6 L BUN 13 D Creatinine 0.9 Creat Clearance w eGFR > 60 Random Glucose 90 Calcium 8.0 L Total Bilirubin 0.3 AST 22 ALT 43 D Alkaline Phosphatase 68 Total Protein 6.2 L Albumin 3.1 L D Urine Color Urine Appearance Urine pH Ur Specific [place] Urine Protein Urine Glucose (UA) Urine Ketones Urine Blood Urine Nitrite Urine Bilirubin Urine Urobilinogen Ur Leukocyte Esterase RPR Titer Nonreactive Hepatitis C Antibody <0.1 HIV 1&2 Antibody Screen HIV P24 Antigen Labs noted Assessment: 10/21/17 13:37 Withdrawal symptoms Plan: Continue detox
[2017-10-21] MEDS: chlordiazePOXIDE HCL 10 MG CAPSULE PO SCH ×2 (17:24→22:11)
[2017-10-21] MEDS: THIAMINE HCL 100 MG TABLET (FP) PO SCH (22:11)
[2017-10-22] MEDS: IBUPROFEN 400 MG TABLET (FP) PO PRN (03:19)
[2017-10-22] MEDS: chlordiazePOXIDE HCL 10 MG CAPSULE PO SCH (05:44)
[2017-10-22 09:12] VITALS: BP 114/75; PULSE 56; TEMP 96.6
--- NOTE | 2017-10-22 10:42 | DS ---
[facility] Detox Discharge Summary Admission Date: 10/18/17 Discharge Date: 10/22/17 - History Present History: Alcohol Dependence, Cannabis Dependence Additional Comments: DETOX COMPLETED. ALERT O X 3. NAD. PT REMINDED TO FOLLOW UP WITH PMDDR KHAN AT [place], [place] FOR MEDICAL MANAGEMENT OF COMORBID CONDITIONS NEEDED. Pertinent Past History: SEIZURE DISORDER OBESITY - Physical Exam Results Vital Signs: Vital Signs Temperature 96.6 F L 10/22/17 09:11 Pulse Rate 56 L 10/22/17 09:11 Respiratory Rate 18 10/22/17 09:11 Blood Pressure 114/75 10/22/17 09:11 O2 Sat by Pulse Oximetry (%) Pertinent Admission Physical Exam Findings: WITHDRAWAL SX Laboratory Last Values WBC 8.1 K/mm3 (4.0-10.0) 10/19/17 07:30 RBC 4.57 M/mm3 (4.00-5.60) 10/19/17 07:30 Hgb 13.2 GM/dL (11.7-16.9) 10/19/17 07:30 Hct 39.9 % (35.4-49) 10/19/17 07:30 MCV 87.2 fl (80-96) 10/19/17 07:30 MCH 28.8 pg (25.7-33.7) 10/19/17 07:30 MCHC 33.0 g/dl (32.0-35.9) 10/19/17 07:30 RDW 14.7 % (11.9-15.9) 10/19/17 07:30 Plt Count 183 K/MM3 (134-434) 10/19/17 07:30 MPV 9.9 fl (7.5-11.1) 10/19/17 07:30 Sodium 140 mmol/L (136-145) 10/19/17 07:30 Potassium 4.0 mmol/L (3.5-5.1) 10/19/17 07:30 Chloride 108 mmol/L (98-107) H 10/19/17 07:30 Carbon Dioxide 26 mmol/L (21-32) 10/19/17 07:30 Anion Gap 6 (8-16) L 10/19/17 07:30 BUN 13 mg/dL (7-18) D 10/19/17 07:30 Creatinine 0.9 mg/dL (0.7-1.3) 10/19/17 07:30 Creat Clearance w eGFR > 60 (>60) 10/19/17 07:30 Random Glucose 90 mg/dL (74-106) 10/19/17 07:30 Calcium 8.0 mg/dL (8.5-10.1) L 10/19/17 07:30 Total Bilirubin 0.3 mg/dL (0.2-1.0) 10/19/17 07:30 AST 22 U/L (15-37) 10/19/17 07:30 ALT 43 U/L (12-78) D 10/19/17 07:30 Alkaline Phosphatase 68 U/L (45-117) 10/19/17 07:30 Total Protein 6.2 g/dl (6.4-8.2) L 10/19/17 07:30 Albumin 3.1 g/dl (3.4-5.0) L D 10/19/17 07:30 Urine Color Ltyellow 10/18/17 12:00 Urine Appearance Clear 10/18/17 12:00 Urine pH 5.0 (5.0-8.0) 10/18/17 12:00 Ur Specific [place] 1.018 (1.001-1.035) 10/18/17 12:00 Urine Protein Negative (NEGATIVE) 10/18/17 12:00 Urine Glucose (UA) Negative (NEGATIVE) 10/18/17 12:00 Urine Ketones Negative (NEGATIVE) 10/18/17 12:00 Urine Blood Negative (NEGATIVE) 10/18/17 12:00 Urine Nitrite Negative (NEGATIVE) 10/18/17 12:00 Urine Bilirubin Negative (NEGATIVE) 10/18/17 12:00 Urine Urobilinogen Negative mg/dL (0.2-1.0) 10/18/17 12:00 Ur Leukocyte Esterase Negative (NEGATIVE) 10/18/17 12:00 RPR Titer Nonreactive (NONREACTIVE) 10/19/17 07:30 Hepatitis C Antibody <0.1 s/co ratio (0.0-0.9) 10/19/17 07:30 HIV 1&2 Antibody Screen Negative 10/19/17 07:30 HIV P24 Antigen Negative 10/19/17 07:30 - Treatment Hospital Course: Detox Protocol Followed, Detoxed Safely, Responded well, Discharged Condition Good - Medication Discharge Medications: Ambulatory Orders NK [No Known Home Medication] 03/16/17 - Diagnosis (1) Alcohol dependence with uncomplicated withdrawal Status: Acute (2) Cannabis dependence, uncomplicated Status: Acute (3) Nicotine dependence Status: Acute Qualifiers: Nicotine product type: cigarettes Substance use status: in withdrawal Qualified Code(s): F17.213 - Nicotine dependence, cigarettes, with withdrawal (4) Obesity Status: Chronic Qualifiers: Obesity type: unspecified obesity type (5) Seizure Status: Suspected - AMA Did Patient Leave Against Medical Advice: No
== END 2017-10-22 09:11 | disposition home or self-care (01) | DRG 774 ==
LOC: YASAS 08:45 → Y3N 11:31
PROVIDERS: ADMIT Internal Medicine; ATTEND Internal Medicine
PROC: HZ2ZZZZ Detoxification Services for Substance Abuse Treatment (ICD-10-PCS; principal; 2017-10-18)
DX: F10.230 Alcohol dependence with withdrawal, uncomplicated (principal); F14.20 Cocaine dependence, uncomplicated; F12.20 Cannabis dependence, uncomplicated; F17.213 Nicotine dependence, cigarettes, with withdrawal; F20.9 Schizophrenia, unspecified; F31.9 Bipolar disorder, unspecified; F19.24 Other psychoactive substance dependence with psychoactive substance-induced mood disorder; E66.9 Obesity, unspecified; Z68.38 Body mass index [BMI] 38.0-38.9, adult; Z86.79 Personal history of other diseases of the circulatory system; Z86.69 Personal history of other diseases of the nervous system and sense organs; Z91.5 Personal history of self-harm
CPT/HCPCS: 36415; 80053; 81003; 85027; 86593; 86803; 87389; 93005; 93010

== ENCOUNTER 2018-04-12 10:58 | Inpatient (IN) | payer OTHER ==
[2018-04-12 11:29] VITALS: BMI 39.9
--- NOTE | 2018-04-12 13:06 | HP ---
CIWA Score - CIWA Score Nausea/Vomitin-Int. Nausea w/Dry Heave (AND DIARRHEA.) Muscle Tremors: 3 Anxiety: 3 Agitation: 3 Paroxysmal Sweats: 1-Minimal Palms Moist Orientation: 0-Oriented Tacttile Disturbances: 2-Mild Itch/Numbness/Burn (NUMBNESS/TINGLING OF HANDS) Auditory Disturbances: 0-None Visual Disturbances: 0-None Headache: 1-Very Mild CIWA-Ar Total Score: 17 Admission ROS S - HPI Chief Complaint: ALCOHOL WITHDRAWAL SX Allergies/Adverse Reactions: Allergies Allergy/AdvReac Type Severity Reaction Status Date / Time No Known Allergies Allergy Verified 04/12/18 11:27 History of Present Illness: 32 Y/O H/MALE WITH A HX OF ALCOHOL AND MARIJUANA DEPENDENCE SEEKING DETOX TX. PT STATES HE WAS AT [facility] YESTERDAY DUE TO ALCOHOL INTOXICATION AND WAS DISCHARGED THIS MORNING. Exam Limitations: No Limitations - Ebola screening Have you traveled outside of the country in the last 21 days: No (N) Have you had contact with anyone from an Ebola affected area: No Have you been sick,other than usual withdrawal symptoms: No Do you have a fever: No - Review of Systems Constitutional: Chills, Changes in sleep EENT: reports: Blurred Vision, Tearing, Nose Congestion, Dental Problems ( CAVITIES) Respiratory: reports: No Symptoms reported Cardiac: reports: Lightheadedness GI: reports: Diarrhea, Nausea, Poor Fluid Intake, Vomiting : reports: No Symptoms Reported Musculoskeletal: reports: Back Pain, Joint Pain, Muscle Pain Integumentary: reports: Bruising (WRIST-) Neuro: reports: Headache, Numbness, Tingling, Dizziness Endocrine: reports: No Symptoms Reported Hematology: reports: No Symptoms Reported Psychiatric: reports: Orientated x3, Anxious Other Systems: Reviewed and Negative Patient History - Patient Medical History Hx Anemia: No Hx Asthma: No Hx Chronic Obstructive Pulmonary Disease (COPD): No Hx Cancer: No Hx Cardiac Disorders: No Hx Congestive Heart Failure: No Hx Hypertension: No Hx Hypercholesterolemia: No Hx Pacemaker: No HX Cerebrovascular Accident: No Hx Seizures: Yes ("WHEN I WAS SMOKING K2 IN 2014") Hx Dementia: No Hx Diabetes: No Hx Gastrointestinal Disorders: No Hx Liver Disease: No Hx Genitourinary Disorders: No Hx Sexually Transmitted Disorders: No Hx Renal Disease (ESRD): No Hx Thyroid Disease: No Hx Human Immunodeficiency Virus (HIV): No Hx Hepatitis C: No Hx Depression: Yes (NO MEDS) Hx Suicide Attempt: Yes (DRANK BLEACH IN 2002;DENIES S/H/I TODAY) Hx Bipolar Disorder: Yes Hx Schizophrenia: No - Patient Surgical History Past Surgical History: Yes Hx Neurologic Surgery: No Hx Cataract Extraction: No Hx Cardiac Surgery: No Hx Lung Surgery: No Hx Breast Surgery: No Hx Breast Biopsy: No Hx Abdominal Surgery: No Hx Appendectomy: Yes (06/2016 LAP) Hx Cholecystectomy: No Hx Genitourinary Surgery: No Hx Orthopedic Surgery: No Hx Hysterectomy: No Anesthesia Reaction: No - PPD History Previous Implant?: Yes Documented Results: Negative w/proof Implanted On Prior R Admission?: Yes Date: 03/18/17 Results: 0 mm PPD to be Administered?: Yes - Reproductive History Patient is a Female of Child Bearing Age (11 -55 yrs old): No (MALE) - Smoking Cessation Smoking history: Current every day smoker Have you smoked in the past 12 months: Yes Aproximately how many cigarettes per day: 2 Hx Chewing Tobacco Use: No Initiated information on smoking cessation: Yes 'Breaking Loose' booklet given: 04/12/18 - Substance & Tx. History Hx Alcohol Use: Yes (VODKA/BEER) Hx Substance Use: Yes (MARIJUANA) Substance Use Type: Alcohol, Marijuana Hx Substance Use Treatment: Yes - Substances Abused Alcohol-vodka/beer Route: Oral Frequency: Daily Amount used: 2 pts./1-6 pk. Age of first use: 13 Date of Last Use: 04/11/18 k2 Route: Smoking Frequency: Daily Amount used: 3 joints Age of first use: 28 Date of Last Use: 04/11/18 Family Disease History - Family Disease History Family Disease History: Diabetes: Grandparent, Other: Brother (schizophrenia) Admission Physical Exam BHS - Vital Signs Vital Signs: Vital Signs - 24 hr 04/12/18 11:24 Pulse Rate 74 Respiratory 18 Rate Blood Pressure 123/83 - Physical General Appearance: Yes: Moderate Distress, Obese, Irritable, Anxious, Other ( PT IS SLEEPY BUT EASILY AROUSABLE. WAS IN THE ER LAST NIGHT.) HEENTM: Yes: EOMI, Normocephalic, TOD, Pharynx Normal Respiratory: Yes: Chest Non-Tender, Lungs Clear, Normal Breath Sounds, No Respiratory Distress Neck: Yes: No masses,lesions,Nodules, Supple, Trachea in good position Breast: Yes: Breast Exam Deferred Cardiology: Yes: Regular Rhythm, Regular Rate, S1, S2 Abdominal: Yes: Normal Bowel Sounds, Non Tender, Soft, Other (FATTY ABDOMEN) Genitourinary: Yes: Within Normal Limits Back: Yes: Within Normal Limits Musculoskeletal: Yes: full range of Motion, Gait Steady Extremities: Yes: Normal Range of Motion, Non-Tender Neurological: Yes: rn hyperbaric II-XII NML intact, Fully Oriented, Alert, Motor Strength 5/5 Integumentary: Yes: Dry, Warm Lymphatic: Yes: Within Normal Limits - Diagnostic (1) Alcohol dependence with uncomplicated withdrawal Current Visit: Yes Status: Acute (2) Cannabis dependence, uncomplicated Current Visit: No Status: Acute (3) Nicotine dependence Current Visit: Yes Status: Acute Qualifiers: Nicotine product type: cigarettes Substance use status: in withdrawal Qualified Code(s): F17.213 - Nicotine dependence, cigarettes, with withdrawal (4) Obesity Current Visit: Yes Status: Chronic Qualifiers: Obesity type: unspecified obesity type (5) Seizure Current Visit: Yes Status: Suspected Cleared for Admission [facility] - Detox or Rehab [facility] Level of Care: Medically Managed Detox Regimen/Protocol: Librium [facility] Breath Alcohol Content Breath Alcohol Content: 0.034 Urine Drug Screen - Results Drug Screen Negative: No Urine Drug Screen Results: BZO-Benzodiazepines
[2018-04-12] MEDS ORDERED: P-EPHED 60MG/TRIPROLIDI 2.5MG TABLET PO PRN (13:21)
[2018-04-12] MEDS ORDERED: ACETAMINOPHEN 325 MG TABLET (FP) PO PRN (13:21)
[2018-04-12] MEDS ORDERED: MAGNESIUM CITRATE 300 ML BOTTLE PO PRN (13:21)
[2018-04-12] MEDS ORDERED: MAG HYDROX/AL HYDROX/SIMETH 30 ML UNIT-DOSE CUP PO PRN (13:21)
[2018-04-12] MEDS ORDERED: LOPERAMIDE HCL 2 MG CAPSULE PO PRN (13:21)
[2018-04-12] MEDS ORDERED: guaiFENesin/D-METHORPHAN HB 10 ML UNIT-DOSE CUPS PO PRN (13:21)
[2018-04-12] MEDS ORDERED: hydrOXYzine PAMOATE 50 MG CAPSULE (FP) PO PRN (13:21)
[2018-04-12] MEDS ORDERED: MENTHOL/PHENOL 1 EACH UD MM PRN (13:21)
[2018-04-12] MEDS ORDERED: IBUPROFEN 400 MG TABLET (FP) PO PRN (13:21)
[2018-04-12] MEDS ORDERED: NICOTINE POLACRILEX 2 MG GUM BUC PRN (13:21)
[2018-04-12] MEDS ORDERED: chlordiazePOXIDE HCL 25 MG CAPSULE PO PRN (13:21)
[2018-04-12] MEDS ORDERED: MAGNESIUM HYDROX 2400MG/30ML ORAL SUSPENSION 30 ML CUP PO PRN (13:21)
[2018-04-12] MEDS ORDERED: chlordiazePOXIDE HCL 25 MG CAPSULE PO ONE (13:55)
[2018-04-12] MEDS: NICOTINE 14 MG/24 HOURS TOPICAL PATCH TD SCH (14:46)
[2018-04-12] MEDS: chlordiazePOXIDE HCL 25 MG CAPSULE PO SCH ×2 (17:38→22:17)
[2018-04-12 19:34] LABS: HEMATOCRIT 34.8 % (35.4-49); HEMOGLOBIN 11.9 GM/dL (11.7-16.9); MCH 30.7 pg (25.7-33.7); MCHC 34.2 g/dl (32.0-35.9); MEAN CELL VOLUME 89.8 fl (80-96); MEAN PLT VOLUME 9.9 fl (7.5-11.1); PLATELET COUNT 148 K/MM3 (134-434); RBC 3.88 M/mm3 (4.00-5.60); RDW 14.5 % (11.9-15.9); WHITE BLOOD COUNT 5.2 K/mm3 (4.0-10.0)
[2018-04-12 19:41] LABS: ALBUMIN 3.3 g/dl (3.4-5.0); ALK PHOS 64 U/L (45-117); ANION GAP 4 (8-16); BILIRUBIN,TOTAL 0.2 mg/dL (0.2-1.0); BLOOD UREA NITROGEN 19 mg/dL (7-18); CALCIUM 7.6 mg/dL (8.5-10.1); CHLORIDE 114 mmol/L (98-107); CO2 27 mmol/L (21-32); CREATININE 1.1 mg/dL (0.7-1.3); GLUCOSE,RANDOM 90 mg/dL (74-106); POTASSIUM 3.9 mmol/L (3.5-5.1); SGOT/AST 37 U/L (15-37); SGPT/ALT 53 U/L (12-78); SODIUM 145 mmol/L (136-145); TOT PROT 6.3 g/dl (6.4-8.2)
[2018-04-12 19:44] LABS: URINE APPEARANCE CLEAR; URINE BILIRUBIN NEGATIVE (<2.0 mg/dL); URINE COLOR YELLOW; URINE GLUCOSE (UA) NEGATIVE (NEGATIVE); URINE KETONE NEGATIVE (NEGATIVE); URINE LEUK ESTERASE NEGATIVE (NEGATIVE); URINE NITRITE NEGATIVE (NEGATIVE); URINE PROTEIN NEGATIVE (NEGATIVE); URINE UROBILINOGEN NEGATIVE mg/dL (0.2-1.0)
[2018-04-12] MEDS ORDERED: MELATONIN 5 MG TABLETS PO PRN (22:00)
[2018-04-12] MEDS: THIAMINE HCL 100 MG TABLET (FP) PO SCH (22:17)
[2018-04-12] MEDS: BACITRACIN 0.9 GM PACKET TP SCH (22:18)
[2018-04-13] MEDS: chlordiazePOXIDE HCL 25 MG CAPSULE PO SCH ×4 (05:30→22:11)
[2018-04-13] MEDS: BACITRACIN 0.9 GM PACKET TP SCH ×2 (11:00→22:11)
[2018-04-13] MEDS: NICOTINE 14 MG/24 HOURS TOPICAL PATCH TD SCH (11:00)
[2018-04-13] MEDS: PRENATAL VITAMINS W/ FOLIC ACID TABLET (FP) PO SCH (11:00)
--- NOTE | 2018-04-13 11:38 | CONSULT ---
[facility] Psychiatric Consult - Data Date of interview: 04/13/18 Admission source: [facility] Identifying data: One of several admissions to [facility] for this 32 y/o [place] male seeking detox treatment for alcohol and cannabis (K2) dependence.Patient is single without children,homeless,unemployed and supported by relatives. Substance Abuse History: Smoking history: Current every day smoker. Have you smoked in the past 12 months: Yes. Aproximately how many cigarettes per day: 2. Hx Chewing Tobacco Use: No. Initiated information on smoking cessation: Yes. 'Breaking Loose' booklet given: 04/12/18. - Substance & Tx. History. Hx Alcohol Use: Yes (VODKA/BEER). Hx Substance Use: Yes (MARIJUANA). Substance Use Type: Alcohol, Marijuana. Hx Substance Use Treatment: Yes. - Substances Abused. Alcohol-vodka/beer. Route: Oral. Frequency: Daily. Amount used: 2 pts./1-6 pk. Age of first use: 13. Date of Last Use: 04/11/18. k2. Route: Smoking. Frequency: Daily. Amount used: 3 joints. Age of first use: 28. Date of Last Use: 04/11/18 Medical History: History of apppendectomy and seizures (withdrawal-related) Psychiatric History: No change in longitudinal history.Patient continues to abstain from psychotropic medications.No reported history of psychiatric hospitalizations.Only CPEP evaluations at local institutions.Past exposure to sertraline,olanzapine,trazodone and risperdal (more than 10 years ago).No psychiatric OPD care.Mr Mcconnell admits to remote history of suicide attempt via ingestion of chlorox (was reportedly under the influence of phencyclidine). Physical/Sexual Abuse/Trauma History: Patient denies. Additional Comment: Urine Drug Screen Results: BZO-Benzodiazepines.Noted. Mental Status Exam - Mental Status Exam Alert and Oriented to: Time, Place, Person Cognitive Function: Good Patient Appearance: Well Groomed (obese) Mood: Hopeful, Euthymic Affect: Appropriate, Normal Range Patient Behavior: Appropriate, Cooperative Speech Pattern: Clear, Appropriate (fluent in [place] island[place] ) Voice Loudness: Normal Thought Process: Goal Oriented Thought Disorder: Not Present Hallucinations: Denies Suicidal Ideation: Denies Homicidal Ideation: Denies Insight/Judgement: Poor Sleep: Well Appetite: Good Muscle strength/Tone: Normal Gait/Station: Normal Psychiatric Findings - Problem List ([place] 1, 2,3) (1) Alcohol dependence with uncomplicated withdrawal Current Visit: Yes Status: Acute (2) Nicotine dependence Current Visit: Yes Status: Acute Qualifiers: Nicotine product type: cigarettes Substance use status: in withdrawal Qualified Code(s): F17.213 - Nicotine dependence, cigarettes, with withdrawal (3) Substance induced mood disorder Current Visit: Yes Status: Acute (4) History of bipolar disorder Current Visit: Yes Status: Chronic Comment: Currently asymptomatic.Not on medications.Lost to follow up for years. - Initial Treatment Plan Initial Treatment Plan: Psychoeducation.Detoxification.Observation.
[2018-04-13] MEDS ORDERED: CYCLOBENZAPRINE HCL 10 MG TABLET (FP) PO PRN (12:25)
--- NOTE | 2018-04-13 18:42 | PN ---
[facility] CIWA - CIWA Score Nausea/Vomitin-No Nausea/No Vomiting Muscle Tremors: None Anxiety: 3 Agitation: 2 Paroxysmal Sweats: 3 Orientation: 2-Disoriented Date<2 days Tacttile Disturbances: 3-Moderate Itch/Numb/Burn Auditory Disturbances: 3-Moderate Harsh/Frighten Visual Disturbances: 0-None Headache: 0-None Present CIWA-Ar Total Score: 16 BHS Progress Note (SOAP) Subjective: Body Aches, Fatigue, Sweating, Anxious. Objective: PATIENT A & O X 2 (UNCERTAIN ABOUT CURRENT DAY / DATE). PATIENT OBSERVED AMBULATING ON UNIT. NO ACUTE DISTRESS 04/13/18 18:40 Vital Signs Temperature 97.9 F 04/13/18 18:11 Pulse Rate 54 L 04/13/18 18:11 Respiratory Rate 19 04/13/18 18:11 Blood Pressure 135/84 04/13/18 18:11 O2 Sat by Pulse Oximetry (%) Laboratory Tests 04/12/18 04/12/18 04/12/18 13:00 13:00 13:00 WBC 5.2 D RBC 3.88 L Hgb 11.9 Hct 34.8 L MCV 89.8 MCH 30.7 MCHC 34.2 RDW 14.5 Plt Count 148 MPV 9.9 Sodium 145 Potassium 3.9 Chloride 114 H Carbon Dioxide 27 Anion Gap 4 L BUN 19 H D Creatinine 1.1 D Creat Clearance w eGFR > 60 Random Glucose 90 Calcium 7.6 L Total Bilirubin 0.2 D AST 37 D ALT 53 D Alkaline Phosphatase 64 Total Protein 6.3 L Albumin 3.3 L Urine Color Urine Appearance Urine pH Ur Specific [place] Urine Protein Urine Glucose (UA) Urine Ketones Urine Blood Urine Nitrite Urine Bilirubin Urine Urobilinogen Ur Leukocyte Esterase RPR Titer Nonreactive 04/12/18 18:00 WBC RBC Hgb Hct MCV MCH MCHC RDW Plt Count MPV Sodium Potassium Chloride Carbon Dioxide Anion Gap BUN Creatinine Creat Clearance w eGFR Random Glucose Calcium Total Bilirubin AST ALT Alkaline Phosphatase Total Protein Albumin Urine Color Yellow Urine Appearance Clear Urine pH 6.0 Ur Specific [place] 1.018 Urine Protein Negative Urine Glucose (UA) Negative Urine Ketones Negative Urine Blood Negative Urine Nitrite Negative Urine Bilirubin Negative Urine Urobilinogen Negative Ur Leukocyte Esterase Negative RPR Titer LABS NOTED. Assessment: 04/13/18 18:40 WITHDRAWAL SYMPTOMS. Plan: CONTINUE DETOX. INCREASE DAILY PO FLUID INTAKE. ENCOURAGE AMBULATION.
[2018-04-13] MEDS: THIAMINE HCL 100 MG TABLET (FP) PO SCH (22:11)
[2018-04-14] MEDS: chlordiazePOXIDE HCL 25 MG CAPSULE PO SCH ×2 (05:32→10:22)
[2018-04-14] MEDS: BACITRACIN 0.9 GM PACKET TP SCH ×2 (10:22→22:14)
[2018-04-14] MEDS: PRENATAL VITAMINS W/ FOLIC ACID TABLET (FP) PO SCH (10:22)
[2018-04-14] MEDS: NICOTINE 14 MG/24 HOURS TOPICAL PATCH TD SCH (10:22)
--- NOTE | 2018-04-14 16:41 | PN ---
S CIWA - CIWA Score Nausea/Vomitin Muscle Tremors: 4-Moderate,w/Arms Extend Anxiety: 3 Agitation: 3 Paroxysmal Sweats: 3 Orientation: 0-Oriented Tacttile Disturbances: 1-Very Mild Itch/Numbness Auditory Disturbances: 0-None Visual Disturbances: 0-None Headache: 1-Very Mild CIWA-Ar Total Score: 18 BHS Progress Note (SOAP) Subjective: Sweating, anxious, interrupted sleep, nausea Objective: 04/14/18 16:40 Last Vital Signs Temp Pulse Resp BP Pulse Ox 96.2 F L 53 L 18 141/88 04/14/18 13:32 04/14/18 13:32 04/14/18 13:32 04/14/18 13:32 Laboratory Tests 04/12/18 04/12/18 04/12/18 13:00 13:00 13:00 WBC 5.2 D RBC 3.88 L Hgb 11.9 Hct 34.8 L MCV 89.8 MCH 30.7 MCHC 34.2 RDW 14.5 Plt Count 148 MPV 9.9 Sodium 145 Potassium 3.9 Chloride 114 H Carbon Dioxide 27 Anion Gap 4 L BUN 19 H D Creatinine 1.1 D Creat Clearance w eGFR > 60 Random Glucose 90 Calcium 7.6 L Total Bilirubin 0.2 D AST 37 D ALT 53 D Alkaline Phosphatase 64 Total Protein 6.3 L Albumin 3.3 L Urine Color Urine Appearance Urine pH Ur Specific [place] Urine Protein Urine Glucose (UA) Urine Ketones Urine Blood Urine Nitrite Urine Bilirubin Urine Urobilinogen Ur Leukocyte Esterase RPR Titer Nonreactive 04/12/18 18:00 WBC RBC Hgb Hct MCV MCH MCHC RDW Plt Count MPV Sodium Potassium Chloride Carbon Dioxide Anion Gap BUN Creatinine Creat Clearance w eGFR Random Glucose Calcium Total Bilirubin AST ALT Alkaline Phosphatase Total Protein Albumin Urine Color Yellow Urine Appearance Clear Urine pH 6.0 Ur Specific [place] 1.018 Urine Protein Negative Urine Glucose (UA) Negative Urine Ketones Negative Urine Blood Negative Urine Nitrite Negative Urine Bilirubin Negative Urine Urobilinogen Negative Ur Leukocyte Esterase Negative RPR Titer Labs reviewed Assessment: 04/14/18 16:41 Withdrawal symptoms Plan: Continue detox Encouraged PO hydration (water)
[2018-04-14] MEDS: chlordiazePOXIDE 5 MG CAPSULE PO SCH ×2 (17:21→22:14)
[2018-04-14] MEDS: THIAMINE HCL 100 MG TABLET (FP) PO SCH (22:14)
[2018-04-15] MEDS: chlordiazePOXIDE 5 MG CAPSULE PO SCH ×2 (05:36→10:56)
[2018-04-15] MEDS: BACITRACIN 0.9 GM PACKET TP SCH ×2 (10:56→22:48)
[2018-04-15] MEDS: PRENATAL VITAMINS W/ FOLIC ACID TABLET (FP) PO SCH (10:56)
[2018-04-15] MEDS: NICOTINE 14 MG/24 HOURS TOPICAL PATCH TD SCH (10:56)
--- NOTE | 2018-04-15 11:15 | PN ---
BHS Progress Note (SOAP) Subjective: PT SEEN LAYING IN BED. ALERT O X 3. NAD. Objective: 04/15/18 11:14 Vital Signs 04/15/18 04/15/18 04/15/18 03:30 06:09 06:30 Temperature 97.1 F L Pulse Rate 51 L Respiratory 18 18 18 Rate Blood Pressure 123/76 04/15/18 09:14 Temperature 95.7 F L Pulse Rate 60 Respiratory 18 Rate Blood Pressure 124/82 Laboratory Tests 04/12/18 04/12/18 04/12/18 13:00 13:00 13:00 WBC 5.2 D RBC 3.88 L Hgb 11.9 Hct 34.8 L MCV 89.8 MCH 30.7 MCHC 34.2 RDW 14.5 Plt Count 148 MPV 9.9 Sodium 145 Potassium 3.9 Chloride 114 H Carbon Dioxide 27 Anion Gap 4 L BUN 19 H D Creatinine 1.1 D Creat Clearance w eGFR > 60 Random Glucose 90 Calcium 7.6 L Total Bilirubin 0.2 D AST 37 D ALT 53 D Alkaline Phosphatase 64 Total Protein 6.3 L Albumin 3.3 L Urine Color Urine Appearance Urine pH Ur Specific [place] Urine Protein Urine Glucose (UA) Urine Ketones Urine Blood Urine Nitrite Urine Bilirubin Urine Urobilinogen Ur Leukocyte Esterase RPR Titer Nonreactive 04/12/18 18:00 WBC RBC Hgb Hct MCV MCH MCHC RDW Plt Count MPV Sodium Potassium Chloride Carbon Dioxide Anion Gap BUN Creatinine Creat Clearance w eGFR Random Glucose Calcium Total Bilirubin AST ALT Alkaline Phosphatase Total Protein Albumin Urine Color Yellow Urine Appearance Clear Urine pH 6.0 Ur Specific [place] 1.018 Urine Protein Negative Urine Glucose (UA) Negative Urine Ketones Negative Urine Blood Negative Urine Nitrite Negative Urine Bilirubin Negative Urine Urobilinogen Negative Ur Leukocyte Esterase Negative RPR Titer Assessment: 04/15/18 11:14 WITHDRAWAL SX Plan: CONTINUE DETOX
[2018-04-15] MEDS: chlordiazePOXIDE HCL 10 MG CAPSULE PO SCH ×2 (17:25→22:48)
[2018-04-15] MEDS: THIAMINE HCL 100 MG TABLET (FP) PO SCH (22:48)
--- NOTE | 2018-04-16 00:54 | EKG ---
Test Reason : Blood Pressure : / mmHG Vent. Rate : 066 BPM Atrial Rate : 066 BPM P-R Int : 180 ms QRS Dur : 090 ms QT Int : 380 ms P-R-T Axes : 064 068 034 degrees QTc Int : 398 ms NORMAL SINUS RHYTHM NORMAL ECG WHEN COMPARED WITH ECG OF 18-OCT-2017 15:13, NO SIGNIFICANT CHANGE WAS FOUND Confirmed by GENEVA KNOWLES MD ([id number]) on 04/16/2018 12:53:43 AM Referred By: Confirmed By:GENEVA KNOWLES MD
[2018-04-16] MEDS: chlordiazePOXIDE HCL 10 MG CAPSULE PO SCH (05:53)
[2018-04-16 06:21] VITALS: BP 134/84; PULSE 59; TEMP 96.8
--- NOTE | 2018-04-16 08:34 | DS ---
[facility] Detox Discharge Summary Admission Date: 04/12/18 Discharge Date: 04/16/18 - History Present History: Alcohol Dependence, Cannabis Dependence Additional Comments: DETOX COMPLETED. ALERT O X 3. NAD. PT REPORTS PCP AT [address] [place] [address] KHAN. PT WILL F/U WITH AFTERCARE AT [facility] OPD. Pertinent Past History: PLEASE SEE DX BELOW - Physical Exam Results Vital Signs: Vital Signs Temperature 96.8 F L 04/16/18 06:20 Pulse Rate 59 L 04/16/18 06:20 Respiratory Rate 18 04/16/18 06:20 Blood Pressure 134/84 04/16/18 06:20 O2 Sat by Pulse Oximetry (%) Pertinent Admission Physical Exam Findings: WITHDRAWAL SX Laboratory Tests 04/12/18 04/12/18 04/12/18 13:00 13:00 13:00 WBC 5.2 D RBC 3.88 L Hgb 11.9 Hct 34.8 L MCV 89.8 MCH 30.7 MCHC 34.2 RDW 14.5 Plt Count 148 MPV 9.9 Sodium 145 Potassium 3.9 Chloride 114 H Carbon Dioxide 27 Anion Gap 4 L BUN 19 H D Creatinine 1.1 D Creat Clearance w eGFR > 60 Random Glucose 90 Calcium 7.6 L Total Bilirubin 0.2 D AST 37 D ALT 53 D Alkaline Phosphatase 64 Total Protein 6.3 L Albumin 3.3 L Urine Color Urine Appearance Urine pH Ur Specific [place] Urine Protein Urine Glucose (UA) Urine Ketones Urine Blood Urine Nitrite Urine Bilirubin Urine Urobilinogen Ur Leukocyte Esterase RPR Titer Nonreactive 04/12/18 18:00 WBC RBC Hgb Hct MCV MCH MCHC RDW Plt Count MPV Sodium Potassium Chloride Carbon Dioxide Anion Gap BUN Creatinine Creat Clearance w eGFR Random Glucose Calcium Total Bilirubin AST ALT Alkaline Phosphatase Total Protein Albumin Urine Color Yellow Urine Appearance Clear Urine pH 6.0 Ur Specific [place] 1.018 Urine Protein Negative Urine Glucose (UA) Negative Urine Ketones Negative Urine Blood Negative Urine Nitrite Negative Urine Bilirubin Negative Urine Urobilinogen Negative Ur Leukocyte Esterase Negative RPR Titer - Treatment Hospital Course: Detox Protocol Followed, Detoxed Safely, Responded well, Discharged Condition Good, Rehab Referral Accepted Patient has Accepted a Rehab Referral to: [facility] - Medication Discharge Medications: Ambulatory Orders NK [No Known Home Medication] 03/16/17 - Diagnosis (1) Alcohol dependence with uncomplicated withdrawal Current Visit: Yes Status: Acute (2) Cannabis dependence, uncomplicated Current Visit: Yes Status: Chronic (3) Nicotine dependence Current Visit: Yes Status: Chronic Qualifiers: Nicotine product type: cigarettes Substance use status: in withdrawal Qualified Code(s): F17.213 - Nicotine dependence, cigarettes, with withdrawal (4) Obesity Current Visit: Yes Status: Chronic Qualifiers: Obesity type: unspecified obesity type Obesity classification: adult class 2 (BMI 35 - 39.9) Serious obesity comorbidity presence: unspecified whether serious comorbidity present Body mass index: BMI 39.0-39.9 Qualified Code(s) : E66.9 - Obesity, unspecified; Z68.39 - Body mass index (BMI) 39.0-39.9, adult ; Z68.39 - Body mass index (BMI) 39.0-39.9, adult (5) Seizure Current Visit: Yes Status: Chronic - AMA Did Patient Leave Against Medical Advice: No
--- NOTE | 2018-04-16 11:33 | PN ---
BHS Progress Note (SOAP) Subjective: DETOX COMPLETED. ALERT O X 3. NAD. PT REPORTS PRIMARY CARE AT [address] [place] [address] KALA KHAN. Objective: 04/16/18 11:33 Vital Signs 04/16/18 06:20 Temperature 96.8 F L Pulse Rate 59 L Respiratory 18 Rate Blood Pressure 134/84 Laboratory Tests 04/12/18 04/12/18 04/12/18 13:00 13:00 13:00 WBC 5.2 D RBC 3.88 L Hgb 11.9 Hct 34.8 L MCV 89.8 MCH 30.7 MCHC 34.2 RDW 14.5 Plt Count 148 MPV 9.9 Sodium 145 Potassium 3.9 Chloride 114 H Carbon Dioxide 27 Anion Gap 4 L BUN 19 H D Creatinine 1.1 D Creat Clearance w eGFR > 60 Random Glucose 90 Calcium 7.6 L Total Bilirubin 0.2 D AST 37 D ALT 53 D Alkaline Phosphatase 64 Total Protein 6.3 L Albumin 3.3 L Urine Color Urine Appearance Urine pH Ur Specific [place] Urine Protein Urine Glucose (UA) Urine Ketones Urine Blood Urine Nitrite Urine Bilirubin Urine Urobilinogen Ur Leukocyte Esterase RPR Titer Nonreactive 04/12/18 18:00 WBC RBC Hgb Hct MCV MCH MCHC RDW Plt Count MPV Sodium Potassium Chloride Carbon Dioxide Anion Gap BUN Creatinine Creat Clearance w eGFR Random Glucose Calcium Total Bilirubin AST ALT Alkaline Phosphatase Total Protein Albumin Urine Color Yellow Urine Appearance Clear Urine pH 6.0 Ur Specific [place] 1.018 Urine Protein Negative Urine Glucose (UA) Negative Urine Ketones Negative Urine Blood Negative Urine Nitrite Negative Urine Bilirubin Negative Urine Urobilinogen Negative Ur Leukocyte Esterase Negative RPR Titer Assessment: 04/16/18 11:33 MEDICALLY STABLE Plan: D/C PT TODAY.
== END 2018-04-16 08:30 | disposition home or self-care (01) | DRG 775 ==
LOC: YASAS 10:58 → Y3N 13:53
PROVIDERS: ADMIT Internal Medicine; ATTEND Internal Medicine
PROC: HZ2ZZZZ Detoxification Services for Substance Abuse Treatment (ICD-10-PCS; principal; 2018-04-12)
DX: F10.230 Alcohol dependence with withdrawal, uncomplicated (principal); F12.20 Cannabis dependence, uncomplicated; F17.213 Nicotine dependence, cigarettes, with withdrawal; F31.9 Bipolar disorder, unspecified; F19.24 Other psychoactive substance dependence with psychoactive substance-induced mood disorder; E66.9 Obesity, unspecified; Z68.39 Body mass index [BMI] 39.0-39.9, adult; Z86.69 Personal history of other diseases of the nervous system and sense organs; Z91.5 Personal history of self-harm
CPT/HCPCS: 36415; 80053; 81003; 85027; 86593; 93005; 93010

== ENCOUNTER 2022-08-01 16:59 | Inpatient (IN) | payer OTHER ==
[2022-08-01 22:03] VITALS: BMI 42.3
[2022-08-01] MEDS ORDERED: ONDANSETRON *ODT* 4 MG TABLET SL PRN (23:22)
[2022-08-01] MEDS ORDERED: IBUPROFEN 600 MG TABLET (FP) PO PRN (23:22)
[2022-08-01] MEDS ORDERED: hydrOXYzine PAMOATE 25 MG CAPSULE (FP) PO PRN (23:22)
[2022-08-01] MEDS ORDERED: LOPERAMIDE HCL 2 MG CAPSULE PO PRN (23:22)
[2022-08-01] MEDS ORDERED: IBUPROFEN 400 MG TABLET (FP) PO PRN (23:22)
[2022-08-01] MEDS ORDERED: NICOTINE POLACRILEX 2 MG GUM BUC PRN (23:22)
[2022-08-01] MEDS ORDERED: MAG HYDROX/AL HYDROX/SIMETH 30 ML UNIT-DOSE CUP PO PRN (23:22)
[2022-08-01] MEDS ORDERED: MAGNESIUM HYDROX 2400MG/30ML ORAL SUSPENSION 30 ML CUP PO PRN (23:22)
[2022-08-01] MEDS ORDERED: guaiFENesin 200 MG/10 ML 10 ML UNIT-DOSE CUPS PO PRN (23:22)
[2022-08-01] MEDS ORDERED: MAGNESIUM CITRATE 300 ML BOTTLE PO PRN (23:22)
[2022-08-01] MEDS ORDERED: BENZOCAINE/MENTHOL (CHLORASEPTIC ) LOZENGE MM PRN (23:22)
[2022-08-01] MEDS ORDERED: BISMUTH SUBSALICYLATE 524 MG/30 ML PO PRN (23:22)
[2022-08-01] MEDS ORDERED: MELATONIN 5 MG TABLETS PO PRN (23:22)
[2022-08-01] MEDS ORDERED: ACETAMINOPHEN 325 MG TABLET (FP) PO PRN ×2 (23:22)
[2022-08-01] MEDS ORDERED: P-EPHED 60MG/TRIPROLIDI 2.5MG TABLET PO PRN (23:22)
[2022-08-01] MEDS ORDERED: DICYCLOMINE HCL 10 MG CAPSULE PO PRN (23:22)
[2022-08-01] MEDS ORDERED: diazePAM 5 MG TABLET PO PRN (23:25)
[2022-08-02] MEDS: METHOCARBAMOL 500 MG TABLET PO PRN ×2 (01:40→22:15)
[2022-08-02] MEDS: PRENATAL VITAMINS W/ FOLIC ACID TABLET (FP) PO SCH (10:29)
[2022-08-02 14:02] LABS: HEMATOCRIT 42.3 % (35.4-49); HEMOGLOBIN 13.9 GM/dL (11.7-16.9); MCH 27.7 pg (25.7-33.7); MCHC 32.8 g/dl (32.0-35.9); MEAN CELL VOLUME 84.7 fl (80-96); MEAN PLT VOLUME 9.5 fl (7.5-11.1); PLATELET COUNT 232 10^3/uL (134-434); RDW 14.9 % (11.9-15.9)
[2022-08-02 14:04] LABS: ALBUMIN 3.8 g/dl (3.4-5.0); CALCIUM 8.9 mg/dL (8.5-10.1)
[2022-08-02 14:07] LABS: CREATININE 1.1 mg/dL (0.55-1.3)
[2022-08-02 14:09] LABS: BILIRUBIN,TOTAL 0.5 mg/dL (0.2-1); TOT PROT 7.1 g/dl (6.4-8.2)
[2022-08-02 21:30] VITALS: RESP 18
[2022-08-02] MEDS ORDERED: THIAMINE HCL 100 MG TABLET (FP) PO SCH (22:00)
[2022-08-02] MEDS ORDERED: risperiDONE 1 MG TABLET PO SCH (22:00)
[2022-08-03 07:00] VITALS: BP 113/63; PULSE 66; TEMP 97.1
[2022-08-03] MEDS: PRENATAL VITAMINS W/ FOLIC ACID TABLET (FP) PO SCH (10:34)
== END 2022-08-03 10:50 | disposition home or self-care (01) | DRG 775 ==
LOC: YASAS 16:59 → UNDOADMIN 08-02 01:15 → Y3N 08-02 01:15 → UNDODISIN 08-03 10:50
PROVIDERS: ADMIT Allergy & Immunology; ATTEND Allergy & Immunology
PROC: HZ2ZZZZ Detoxification Services for Substance Abuse Treatment (ICD-10-PCS; principal; 2022-08-02)
DX: F10.230 Alcohol dependence with withdrawal, uncomplicated (principal); F12.20 Cannabis dependence, uncomplicated; F17.210 Nicotine dependence, cigarettes, uncomplicated; F20.9 Schizophrenia, unspecified; F31.9 Bipolar disorder, unspecified; Z56.0 Unemployment, unspecified; Z59.00 Homelessness unspecified
CPT/HCPCS: 36415; 80053; 85027; 86780; C9803-CS; J2794; U0003; U0005